=== PATIENT | female | born 1960 | race Two or more races ===

== ENCOUNTER → 2022-07-10 | Day surgery (SDC) | payer MEDICAID ==
[2022-07-05 10:58] LABS: Basophils # (auto) 0 10 ^3/uL (0-0.2); Basophils % (auto) 0.7 % (0.0-2.0); Eosinophils # (auto) 0.1 10 ^3/uL (0-0.8); Eosinophils % (auto) 2.8 % (0.0-7.0); Hematocrit 45.8 % (36.0-46.0); Hemoglobin 14.9 g/dL (12.2-16.2); Lymphocytes # (auto) 2.7 10 ^3/uL (0.4-5.4); Lymphocytes % (auto) 53.8 % (10.0-50.0); Mean Corpuscular Hemoglobin 29.1 pg (28.0-32.0); Mean Corpuscular Hgb Conc. 32.5 g/dL (32.0-36.0); Mean Corpuscular Volume 89.6 fL (80.0-100.0); Monocytes # (auto) 0.3 10 ^3/uL (0-1.3); Monocytes % (auto) 5.1 % (0.0-12.0); Neutrophils # (auto) 1.9 10 ^3/uL (1.6-8.6); Neutrophils % (auto) 37.6 % (37.0-80.0); Nucleated Red Blood Cells % 0.1 %; Red Blood Cells 5.11 10^6/uL (4.0-5.20); Red Cell Distribution Width 13.5 % (11.8-14.3); White Blood Cell 5.1 10^3/uL (4.4-10.8)
[2022-07-05 11:19] LABS: INR 0.96 (0.9-1.15); Partial Thromboplastin Time 25.7 sec (24.6-33.4)
[2022-07-05 11:57] LABS: Potassium 4.4 mmol/L (3.5-5.1)
[2022-07-05 12:09] LABS: Albumin 3.7 g/dL (3.4-5.0); Bilirubin, Total 0.4 mg/dL (0.2-1.0); Calcium 8.9 mg/dL (8.5-10.1); Total Protein 7.3 g/dL (6.4-8.2)
[~2022-07-10] VITALS: Ht 154.9 cm; Wt 70.8 kg
[~2022-07-10] MED LIST: CHOL500040 PO
[2022-07-10] MEDS: diphenhdrAMINE HCL 50 MG/1 ML VL ONE ×2 (14:22→14:23)
[2022-07-10] MEDS: MIDAZOLAM HCL 2MG/2ML 2ml VIAL (1mg/ml) ONE ×3 (14:22→14:28)
[2022-07-10] MEDS: fentaNYL CITRATE 100 MCG/2 ML VL ONE ×2 (14:22→14:25)
[2022-07-10 15:14] VITALS: BP 116/69
== END | disposition home or self-care (01) ==
LOC: GI 12:43
PROVIDERS: ATTEND Internal Medicine Gastroenterology
DX: Z12.11 Encounter for screening for malignant neoplasm of colon (principal); K64.8 Other hemorrhoids; Z90.49 Acquired absence of other specified parts of digestive tract; Z20.822 Contact with and (suspected) exposure to COVID-19
CPT/HCPCS: 36415; 45378; 80053; 85025; 85610; 85730; J1200; J2250; J3010; U0003; 99152

== ENCOUNTER → 2023-05-21 | Outpatient (CLI) | payer MEDICAID ==
[2023-05-21 08:47] LABS: Basophils # (auto) 0.1 10 ^3/uL (0-0.2); Basophils % (auto) 0.8 % (0.0-2.0); Eosinophils # (auto) 0.2 10 ^3/uL (0-0.8); Eosinophils % (auto) 2.4 % (0.0-7.0); Hematocrit 45.2 % (36.0-46.0); Lymphocytes # (auto) 3.2 10 ^3/uL (0.4-5.4); Lymphocytes % (auto) 49.3 % (10.0-50.0); Mean Corpuscular Hemoglobin 29.5 pg (28.0-32.0); Mean Corpuscular Hgb Conc. 33.1 g/dL (32.0-36.0); Mean Corpuscular Volume 89.1 fL (80.0-100.0); Monocytes # (auto) 0.3 10 ^3/uL (0-1.3); Monocytes % (auto) 5.1 % (0.0-12.0); Neutrophils # (auto) 2.8 10 ^3/uL (1.6-8.6); Neutrophils % (auto) 42.4 % (37.0-80.0); Nucleated Red Blood Cells % 0.1 %; Red Blood Cells 5.08 10^6/uL (4.0-5.20); Red Cell Distribution Width 13.7 % (11.8-14.3); White Blood Cell 6.5 10^3/uL (4.4-10.8)
[2023-05-21 09:30] LABS: Alanine Aminotransferase 56 U/L (7-40); Albumin 4.7 g/dL (3.2-4.8); Alkaline Phosphatase 70 U/L (46-116); Anion Gap 7 (5-15); Aspartate Aminotransferase 29 U/L (13-40); BUN/Creatinine Ratio 22.1 (10.0-20.0); Bilirubin, Total 0.5 mg/dL (0.2-1.0); Blood Urea Nitrogen 17 mg/dL (9-23); Calcium 9.7 mg/dL (8.5-10.1); Carbon Dioxide 28 mmol/L (20-30); Chloride 106 mmol/L (98-107); Cholesterol 196 mg/dL (< 200); Glucose 97 mg/dL (74-106); HDL Cholesterol 40 mg/dL (40-59); LDL Cholesterol 144 mg/dL (< 100); Potassium 4.1 mmol/L (3.5-5.1); Sodium 141 mmol/L (136-145); Triglycerides 140 mg/dL (< 150)
[2023-05-21 09:31] LABS: Total Protein 7.4 g/dL (5.7-8.2)
== END | disposition home or self-care (01) ==
LOC: LAB 08:22
PROVIDERS: ATTEND Internal Medicine Gastroenterology
DX: R74.8 Abnormal levels of other serum enzymes (principal)
CPT/HCPCS: 36415; 80053; 80061; 83036; 85025

== ENCOUNTER → 2023-10-10 | Day surgery (SDC) | payer MEDICAID ==
[2023-10-08 10:22] LABS: Basophils # (auto) 0 10 ^3/uL (0-0.2); Basophils % (auto) 0.7 % (0.0-2.0); Eosinophils # (auto) 0.1 10 ^3/uL (0-0.8); Eosinophils % (auto) 2.4 % (0.0-7.0); Hematocrit 45.7 % (36.0-46.0); Hemoglobin 15.2 g/dL (12.2-16.2); Lymphocytes # (auto) 2.9 10 ^3/uL (0.4-5.4); Lymphocytes % (auto) 48.3 % (10.0-50.0); Mean Corpuscular Hemoglobin 28.8 pg (28.0-32.0); Mean Corpuscular Hgb Conc. 33.2 g/dL (32.0-36.0); Mean Corpuscular Volume 86.6 fL (80.0-100.0); Monocytes # (auto) 0.3 10 ^3/uL (0-1.3); Monocytes % (auto) 5.7 % (0.0-12.0); Neutrophils # (auto) 2.5 10 ^3/uL (1.6-8.6); Neutrophils % (auto) 42.9 % (37.0-80.0); Nucleated Red Blood Cells % 0.1 %; Red Blood Cells 5.28 10^6/uL (4.0-5.20); Red Cell Distribution Width 13.7 % (11.8-14.3); White Blood Cell 5.9 10^3/uL (4.4-10.8)
[2023-10-08 10:38] LABS: INR 0.97 (0.9-1.15); Prothrombin Time 10.3 sec (9.3-11.8)
[2023-10-08 11:10] LABS: Alanine Aminotransferase 60 U/L (7-40); Albumin 4.5 g/dL (3.2-4.8); Alkaline Phosphatase 77 U/L (46-116); Anion Gap 6 (5-15); BUN/Creatinine Ratio 22.1 (10.0-20.0); Blood Urea Nitrogen 15 mg/dL (9-23); Calcium 9.3 mg/dL (8.5-10.1); Carbon Dioxide 26 mmol/L (20-30); Chloride 107 mmol/L (98-107); Glucose 111 mg/dL (74-106); LDL Cholesterol 137 mg/dL (< 100); Potassium 3.9 mmol/L (3.5-5.1); Sodium 139 mmol/L (136-145); Triglycerides 159 mg/dL (< 150)
[2023-10-08 11:11] LABS: Aspartate Aminotransferase 49 U/L (13-40); Bilirubin, Total 0.5 mg/dL (0.2-1.0); Cholesterol 193 mg/dL (< 200); HDL Cholesterol 40 mg/dL (40-59); Total Protein 7.4 g/dL (5.7-8.2)
[~2023-10-10] VITALS: Ht 154.9 cm; Wt 72.6 kg
[~2023-10-10] MED LIST changes: +OMEP20TA PO; +SODIUM CHLORIDE LOCK 10 ML ONE
[2023-10-10 10:38] VITALS: O2SAT 98
[2023-10-10] MEDS: LIDOCAINE VISCOUS 2% 15ML UD ONE (10:39)
[2023-10-10] MEDS: diphenhdrAMINE HCL 50 MG/1 ML VL ONE (10:41)
[2023-10-10] MEDS: fentaNYL CITRATE 100 MCG/2 ML VL ONE (10:41)
[2023-10-10] MEDS: MIDAZOLAM HCL 5 MG/ML-1ML VIAL ONE (10:41)
[2023-10-10 10:52] VITALS: TEMP 98.1; O2SAT 98
[2023-10-10 11:30] VITALS: BP 125/74; PULSE 68; RESP 14; O2SAT 98
== END | disposition home or self-care (01) ==
LOC: GI 09:08
PROVIDERS: ATTEND Internal Medicine Gastroenterology
DX: K21.9 Gastro-esophageal reflux disease without esophagitis (principal); R10.13 Epigastric pain; K29.50 Unspecified chronic gastritis without bleeding; B96.81 Helicobacter pylori [H. pylori] as the cause of diseases classified elsewhere; K44.9 Diaphragmatic hernia without obstruction or gangrene; Z79.899 Other long term (current) drug therapy; Z86.16 Personal history of COVID-19; Z98.890 Other specified postprocedural states
CPT/HCPCS: 36415; 43239; 80053; 80061; 83036; 85025; 85610; 85730; 86803; 88305; 88312; 88342; J1200; J2250; J3010

== ENCOUNTER → 2023-10-24 | Outpatient (CLI) | payer MEDICAID ==
[~2023-10-24] MED LIST changes: -SODIUM CHLORIDE LOCK 10 ML ONE
[2023-10-24 09:35] LABS: Basophils # (auto) 0 10 ^3/uL (0-0.2); Basophils % (auto) 0.8 % (0.0-2.0); Eosinophils # (auto) 0.2 10 ^3/uL (0-0.8); Eosinophils % (auto) 2.7 % (0.0-7.0); Hematocrit 45.7 % (36.0-46.0); Hemoglobin 14.9 g/dL (12.2-16.2); Lymphocytes # (auto) 2.6 10 ^3/uL (0.4-5.4); Lymphocytes % (auto) 45.4 % (10.0-50.0); Mean Corpuscular Hemoglobin 28.3 pg (28.0-32.0); Mean Corpuscular Hgb Conc. 32.5 g/dL (32.0-36.0); Mean Corpuscular Volume 87.1 fL (80.0-100.0); Monocytes # (auto) 0.4 10 ^3/uL (0-1.3); Monocytes % (auto) 6.1 % (0.0-12.0); Neutrophils # (auto) 2.6 10 ^3/uL (1.6-8.6); Nucleated Red Blood Cells % 0.1 %; Red Blood Cells 5.25 10^6/uL (4.0-5.20); Red Cell Distribution Width 13.3 % (11.8-14.3); White Blood Cell 5.8 10^3/uL (4.4-10.8)
[2023-10-24 09:45] LABS: Urine Bacteria MOD /hpf (None Seen); Urine Blood 1+ /uL (Negative); Urine Clarity Clear (Clear); Urine Color Yellow (Yellow); Urine Mucus FEW (None Seen); Urine Protein, UAD Negative (Negative); Urine Specific Gravity 1.026 (1.001-1.035); Urine Urobilinogen Normal (Negative); Urine WBC 4 /hpf (0 - 5)
[2023-10-24 10:10] LABS: Alanine Aminotransferase 75 U/L (7-40); Alkaline Phosphatase 72 U/L (46-116); Anion Gap 2 (5-15); BUN/Creatinine Ratio 24.3 (10.0-20.0); Blood Urea Nitrogen 18 mg/dL (9-23); Calcium 9.4 mg/dL (8.5-10.1); Carbon Dioxide 29 mmol/L (20-30); Chloride 110 mmol/L (98-107); Glucose 130 mg/dL (74-106); LDL Cholesterol 122 mg/dL (< 100); Potassium 4.2 mmol/L (3.5-5.1); Sodium 141 mmol/L (136-145); Triglycerides 128 mg/dL (< 150)
[2023-10-24 10:11] LABS: Albumin 4.3 g/dL (3.2-4.8); Aspartate Aminotransferase 48 U/L (13-40); Bilirubin, Total 0.7 mg/dL (0.2-1.0); Cholesterol 180 mg/dL (< 200); HDL Cholesterol 35 mg/dL (40-59); Total Protein 7.2 g/dL (5.7-8.2)
== END | disposition home or self-care (01) ==
LOC: LAB 09:07
PROVIDERS: ATTEND Internal Medicine
DX: Z00.01 Encounter for general adult medical examination with abnormal findings (principal); E78.00 Pure hypercholesterolemia, unspecified; K76.0 Fatty (change of) liver, not elsewhere classified; R73.03 Prediabetes; R03.0 Elevated blood-pressure reading, without diagnosis of hypertension
CPT/HCPCS: 36415; 80053; 80061; 81001; 83036; 84439; 84443; 85025

== ENCOUNTER → 2024-03-22 | Outpatient (CLI) | payer MEDICAID ==
[2024-03-22 09:03] LABS: Basophils # (auto) 0 10 ^3/uL (0-0.2); Basophils % (auto) 0.8 % (0.0-2.0); Eosinophils # (auto) 0.2 10 ^3/uL (0-0.8); Eosinophils % (auto) 3.1 % (0.0-7.0); Hematocrit 45.5 % (36.0-46.0); Hemoglobin 15.4 g/dL (12.2-16.2); Lymphocytes # (auto) 2.8 10 ^3/uL (0.4-5.4); Lymphocytes % (auto) 52.5 % (10.0-50.0); Mean Corpuscular Hgb Conc. 33.9 g/dL (32.0-36.0); Mean Corpuscular Volume 88.3 fL (80.0-100.0); Monocytes # (auto) 0.3 10 ^3/uL (0-1.3); Neutrophils # (auto) 2.1 10 ^3/uL (1.6-8.6); Neutrophils % (auto) 38.6 % (37.0-80.0); Nucleated Red Blood Cells % 0.1 %; Platelet Count (auto) 246 10^3/uL (140-450); Red Blood Cells 5.15 10^6/uL (4.0-5.20); Red Cell Distribution Width 13.8 % (11.8-14.3); White Blood Cell 5.3 10^3/uL (4.4-10.8)
[2024-03-22 09:20] LABS: INR 0.99 (0.9-1.15); Prothrombin Time 10.5 sec (9.3-11.8)
[2024-03-22 09:28] LABS: Alanine Aminotransferase 88 U/L (7-40); Albumin 4.5 g/dL (3.2-4.8); Alkaline Phosphatase 75 U/L (46-116); Anion Gap 7 (5-15); Aspartate Aminotransferase 50 U/L (13-40); Blood Urea Nitrogen 15 mg/dL (9-23); Calcium 9.9 mg/dL (8.7-10.4); Carbon Dioxide 27 mmol/L (20-31); Chloride 110 mmol/L (98-107); Glucose 119 mg/dL (74-106); LDL Cholesterol 111 mg/dL (< 100); Sodium 144 mmol/L (136-145); Triglycerides 144 mg/dL (< 150)
[2024-03-22 09:29] LABS: Bilirubin, Total 0.6 mg/dL (0.2-1.0); Cholesterol 164 mg/dL (< 200); HDL Cholesterol 37 mg/dL (40-59); Total Protein 7.3 g/dL (5.7-8.2)
[2024-03-22 09:47] LABS: Hepatitis B Surface Antigen Negative (Negative)
[2024-03-22 10:08] LABS: Hepatitis C Antibody Negative (Negative)
== END | disposition home or self-care (01) ==
LOC: LAB 08:28
PROVIDERS: ATTEND Internal Medicine
DX: R73.03 Prediabetes (principal); R74.8 Abnormal levels of other serum enzymes; K76.0 Fatty (change of) liver, not elsewhere classified; E78.00 Pure hypercholesterolemia, unspecified; R03.0 Elevated blood-pressure reading, without diagnosis of hypertension; K21.9 Gastro-esophageal reflux disease without esophagitis
CPT/HCPCS: 36415; 80053; 80061; 82728; 83036; 85025; 85610; 86038; 86803; 87340

== ENCOUNTER 2024-06-12 12:02 | Emergency (ER) | payer MEDICAID ==
[~2024-06-12] VITALS: Ht 154.9 cm; Wt 73.3 kg
--- NOTE | 2024-06-12 13:26 | DVH ---
CHEST RADIOGRAPH Indication: FLUE Technique: Frontal and lateral view of the chest was obtained Comparison: None FINDINGS: Lines and Tubes: None Lungs: Clear Pleura: No effusion. No pneumothorax. Cardiomediastinal contours: Unremarkable Bones: Unremarkable IMPRESSION: 1. No evidence of acute disease. HS:Y
[2024-06-12 14:07] VITALS: BP 126/74; PULSE 95; RESP 18; TEMP 98.5; O2SAT 97
[2024-06-12] MEDS ORDERED: LEVO500T91 PO (14:13)
[2024-06-12] MEDS ORDERED: BENZ200C64 PO (14:13)
--- NOTE | 2024-06-12 14:16 | ED.PDOC ---
SOB-HPI HPI Comments A 63 YEAR OLD FEMALE PRESENTS TO THE ED WITH CHIEF COMPLAINT OF COUGH. PATIENT REPORTS THAT SHE HAS BEEN EXPERIENCING A COUGH WITH ASSOCIATED SUBSTERNAL CHEST PAIN AND SORE THROAT FOR THE PAST 4 DAYS. PATIENT RELAYS THAT SHE HAS HISTORY OF PNEUMONIA IN THE PAST. PATIENT DENIES ANY N/V/D, FEVER, CHILLS, DIZZINESS, ABDOMINAL PAIN, OR SOB. NO OTHER SYMPTOMS REPORTED AT THIS TIME OF CARE. Chief Complaint: Flu like Time Seen by MD: 14:00 Reviewed notes: Nurses Notes, Medications, Allergies Information Source: Patient Mode of Arrival: Ambulatory Severity: Mild, Moderate Timing: Days Duration: Since onset Context: At Rest PE Risk Factors: None History of: Recent URI Prehospital treatment: None Modifying Factors: Nothing Associated Signs and Symptoms: Cough, Sore Throat, Chest Pain Quality: Pressure Radiation: No Radiation Location: Substernal If cough with SOB: Productive Past Medical History PAST MEDICAL HISTORY: HTN Surgical History: Denies all surgeries METAL STAMPER History: No Pertinent METAL STAMPER History Family History Family History: Reviewed,noncontributory to illness Social History Smoker: Non-Smoker Alcohol: Denies ETOH Use Drugs: Denies Drug Use Lives In: Home Constitutional: denies: chills, diaphoresis, fatigue, fever, malaise, sweats, weakness, others EENTM: reports: nose congestion, throat pain; denies: blurred vision, double vision, ear bleeding, ear discharge, ear drainage, ear pain, ear ringing, eye pain, eye redness, hearing loss, mouth pain, mouth swelling, nasal discharge, nose bleeding, nose pain, photophobia, tearing, throat swelling, voice changes, others Respiratory: reports: cough; denies: hemoptysis, orthopnea, SOB at rest, short ness of breath, SOB with excertion, stridor, wheezing, others Cardiovascular: denies: chest pain, dizzy spells, diaphoresis, Dyspnea on exertion, edema, irregular heart beat, left arm pain, lightheadedness, palpitations, PND, syncope, others Gastrointestinal: denies: abdomen distended, abdominal pain, blood streaked bowels, constipated, diarrhea, dysphagia, difficulty swallowing, hematemesis, melena, nausea, poor appetite, poor fluid intake, rectal bleeding, rectal pain, vomiting, others Genitourinary: denies: abnormal vagina bleeding, burning, dyspareunia, dysuria, flank pain, frequency, hematuria, incontinence, pain, , vagina discharge, urgency, others Neurological: denies: dizziness, fainting, headache, left sided numbness, left sided weakness, numbness, paresthesia, pre-existing deficit, right sided numbness, right sided weakness, seizure, speech problems, tingling, tremors, weakness, others Musculoskeletal: denies: back pain, gout, joint pain, joint swelling, muscle pain, muscle stiffness, neck pain, others Integumetry: denies: bruises, change in color, change in hair/nails, dryness, laceration, lesions, lumps, rash, wounds, others Allergic/Immunocompromised: denies: Difficulty Healing, Frequent Infections, Hives, Itching, others Hematologic/Lymphatic: denies: anemia, blood clots, easy bleeding, easy bruising, swollen glands, others Endocrine: denies: excessive hunger, excessive sweating, excessive thirst, excessive urination, flushing, intolerance to cold, intolerance to heat, unexplained weight gain, unexplained weight loss, others Psychiatric: denies: anxiety, bipolar disorder, depression, hopeless, panic disorder, schizophrenia, sleepless, suicidal, others All Other Systems: Reviewed and Negative Physical Exam General Appearance: No Apparent Distress, Normal HEENT: Normal ENT Inspection, PERRL/EOMI Neck: Full Range of Motion, Non-Tender, Normal, Normal Inspection Respiratory: Chest Non-Tender, Expiration, No Accessory Muscle Use, No Respiratory Distress, Rhonchi Cardiovascular: No Edema, No JVD, No Murmur, No Gallop, Normal Peripheral Pulses, Regular Rate/Rhythm Breast Exam: Deferred Gastrointestinal: No Organomegaly, Non Tender, No Pulsatile Mass, Normal Bowel Sounds, Soft Genitalia: Deferred Pelvic: Deferred Rectal: Deferred Extremities: No calf tenderness, Normal capillary refill, Normal inspection, Normal range of motion, Non-tender, No pedal edema Musculoskeletal : Apperance: Normal Neurologic: Alert, nuclear medical tech II-XII nml as Tested, No Motor Deficits, Normal Affect, Normal Mood, No Sensory Deficits Cerebellar Function: Normal Reflexes: Normal Skin: Dry, Normal Color, Warm Peripheral Pulses: 2+ carotid (R), 2+ carotid (L) Lymphatic: No Adenopathy Was a procedure done? Was a procedure done?: No Differential Dx Differential Diagnosis: Bronchitis, Pneumonia, Sinusitis, Allergic Rhinitis, Pharyngitis, URI X-Ray, Labs, Meds, VS Vital Signs Date Time Temp Pulse Resp B/P (MAP) Pulse Ox O2 Delivery O2 Flow Rate FiO2 06/12/24 14:07 95 18 97 Room Air 06/12/24 14:07 98.5 95 18 126/74 (91) 97 98.5 06/12/24 12:21 98.3 93 18 128/79 (95) 96 CHEST XR: PATIENT: JENNIFER RAHMANACCT: [id number]: [id number] : 1960 LOC: ER ROOM / BED: / AGE / SEX: 63 / F ADM STATUS: REG ER SERVICE [id number] ORDERING PHYSICIAN: JUVENTINO AMES PROCEDURE(s): CXR2 - CHEST TWO VIEWS ROUTINE REASON: FLUE ORDER NUMBER(s): [id number], ACCESSION NUMBER(s): [id number] CHEST RADIOGRAPH Indication: FLUE Technique: Frontal and lateral view of the chest was obtained Comparison: None FINDINGS: Lines and Tubes: None Lungs: Clear Pleura: No effusion. No pneumothorax. Cardiomediastinal contours: Unremarkable Bones: Unremarkable IMPRESSION: 1. No evidence of acute disease. X-Ray, Labs, Meds, VS Comment EXTERNAL MEDICAL RECORDS REVIEWED: [NONE] INDEPENDENT HISTORIANS: [NONE] SOCIAL DETERMINANTS OF HEALTH: [NONE] LABS ORDERED: NONE REVIEWED AND INTERPRETED RESULTS: NONE IMAGING ORDERED: NONE TREATMENTS ORDERED: NONE PROCEDURES PERFORMED: NONE CRITICAL CARE TIME: NONE GIVEN THE HISTORY AND PRESENT ILLNESS OF THE PATIENT, AFTER REVIEWING LABS, IMAGING, AND COURSE OF TREATMENT ADMINISTERED DURING THEIR ED VISIT, THERE IS LOW SUSPICION FOR RED FLAG FINDINGS. BASED ON HISTORY OF PRESENT ILLNESS, AND PHYSICAL EXAM, PATIENT WILL BE DISCHARGED HOME. DISCUSSED PLAN FOR DISCHARGE HOME WITH [facility] AND OTTO VALDERRAMA. MEDICATION WARNINGS GIVEN. SHARED DECISION MAKING: DISCUSSED WITH PATIENT THAT THEIR WORKUP WAS NORMAL. PATIENT INSTRUCTED TO FOLLOW UP WITH PRIMARY CARE PROVIDER IN 1-2 DAYS FOR RE- EVALUATION OF SYMPTOMS. PATIENT VERBALIZES UNDERSTANDING TO RETURN TO ED FOR NEW OR WORSENING SYMPTOMS OR IF FOLLOW UP WITH PCP CANNOT BE OBTAINED. PATIENT FEELS COMFORTABLE GOING HOME AT THIS TIME. ALL QUESTIONS ADDRESSED AT TIME OF DISCHARGE. Time of 1ST Reevaluation: 14:23 Reevaluation 1ST: Improved Patient Education/Counseling: Diagnosis, Treatment, Need For Follow Up Family Education/Counseling: Diagnosis, Treatment, Need For Follow Up Medical Screening: No EMC Exist At This Time Departure 1 Departure Time of Disposition: :23 Impression: Primary Impression: Acute bronchitis Qualified Codes: J20.9 - Acute bronchitis, unspecified Disposition: HOME / SELF CARE / HOMELESS Condition: Stable Additional Instructions: FOLLOW-UP WITH PCP IN 1 TO 2 DAYS. TAKE MEDICATIONS PRESCRIBED. RETURN TO ED FOR ANY NEW OR WORSENING SYMPTOMS. e-Prescriptions Benzonatate (Benzonatate) 200 Mg Cap 1 CAP PO TID, #30 CAP Prov: JUVENTINO AMES 06/12/24 Levofloxacin Hemihydrate (LEVAQUIN 500 MG) 500 Mg Tab 1 TAB PO DAILY, #7 TAB Prov: JUVENTINO AMES 06/12/24 Discharged With: Self Critical Care Note Critical Care Time?: No Stability Stability form required: No Heart Score Heart Score: Heart Score Response (Comments) Value History N/A 0 EKG N/A 0 Age N/A 0 Risk Factors N/A 0 Troponin N/A 0 Total 0 I personally scribed for JUVENTINO AMES ([email or web address]) on 06/12/24 at 14:16. Electronically submitted by Stewart Hilliard ([email or web address]). JUVENTINO AMES Jun 12, 2024 14:16
[2024-06-12] MEDS ORDERED: METH4PAK PO (20:40)
[2024-06-12] MEDS ORDERED: CEFD300C2 PO (20:40)
== END 2024-06-12 14:53 | disposition home or self-care (01) ==
LOC: ER 12:02
DX: J20.9 Acute bronchitis, unspecified (principal); I10 Essential (primary) hypertension
CPT/HCPCS: 71046

== ENCOUNTER 2024-06-12 19:14 | Emergency (ER) | payer MEDICAID ==
[~2024-06-12] VITALS: Ht 154.9 cm; Wt 73.3 kg
[~2024-06-12 19:14] MED LIST changes: +BENZ200C64 PO; +LEVO500T91 PO
[2024-06-12 20:08] VITALS: BP 128/88; PULSE 91; RESP 18; TEMP 98; O2SAT 96
[2024-06-12] MEDS ORDERED: FAMOTIDINE 20 MG TAB PO ONE (20:30)
--- NOTE | 2024-06-12 20:38 | ED.PDOC ---
History of Present Illness(SKN HPI Comments This is a 63-year-old female presents to the ED chief complaint possible allergic reaction to an antibiotic. Patient recently started on Levaquin for bronchitis she notes took 1 dose and 1 hour later started with itchiness in her hands back and chest with a rash. She reports no difficulty breathing, chest pain, shortness of breath, throat swelling lip swelling nausea or vomiting. Chief Complaint: Allergic Reaction Time Seen by MD: 19:26 History of Present Illness: Nurses Notes, Medications, Allergies Allergies: Coded Allergies: NO KNOWN ALLERGIES (Unverified , 07/05/22) Home Meds Active Scripts Methylprednisolone (Medrol Dosepak) 4 Mg Aleksander, 4 MG PO UD for 6 Days, #21 TAB UAD Prov:RAISA PAYNE ASSISTANT BOYS TRACK COACH 06/12/24 Cefdinir (Cefdinir) 300 Mg Cap, 1 CAP PO BID for 5 Days, #10 CAP Prov:RAISA PAYNEP 06/12/24 Benzonatate (Benzonatate) 200 Mg Cap, 1 CAP PO TID, #30 CAP Prov:JUVENTINO AMES 06/12/24 Levofloxacin Hemihydrate (LEVAQUIN 500 MG) 500 Mg Tab, 1 TAB PO DAILY, #7 TAB Prov:JUVENTINO AMES 06/12/24 Reported Medications Omeprazole (Gnp Omeprazole) 20 Mg Tab, 20 MG PO DAILY, TAB 10/08/23 Cholecalciferol (D3 High Potency) 5,000 Unit Cap, 5000 UNIT PO, CAP 07/05/22 Information Source: Patient Mode of Arrival: Ambulatory Past Medical History PAST MEDICAL HISTORY: HTN Surgical History: Denies all surgeries PRACTICE OR STUDENT TEACHER History: No Pertinent PRACTICE OR STUDENT TEACHER History Family History Family History: Reviewed,noncontributory to illness Social History Smoker: Non-Smoker Alcohol: Denies ETOH Use Drugs: Denies Drug Use Lives In: Home Constitutional: denies: chills, diaphoresis, fatigue, fever, malaise, sweats, weakness, others EENTM: denies: blurred vision, double vision, ear bleeding, ear discharge, ear drainage, ear pain, ear ringing, eye pain, eye redness, hearing loss, mouth pain, mouth swelling, nasal discharge, nose bleeding, nose congestion, nose pain, photophobia, tearing, throat pain, throat swelling, voice changes, others Respiratory: denies: cough, hemoptysis, orthopnea, SOB at rest, shortness of breath, SOB with excertion, stridor, wheezing, others Cardiovascular: denies: chest pain, dizzy spells, diaphoresis, Dyspnea on exertion, edema, irregular heart beat, left arm pain, lightheadedness, palpitations, PND, syncope, others Gastrointestinal: denies: abdomen distended, abdominal pain, blood streaked bowels, constipated, diarrhea, dysphagia, difficulty swallowing, hematemesis, melena, nausea, poor appetite, poor fluid intake, rectal bleeding, rectal pain, vomiting, others Genitourinary: denies: abnormal vagina bleeding, burning, dyspareunia, dysuria, flank pain, frequency, hematuria, incontinence, pain, , vagina discharge, urgency, others Neurological: denies: dizziness, fainting, headache, left sided numbness, left sided weakness, numbness, paresthesia, pre-existing deficit, right sided numbness, right sided weakness, seizure, speech problems, tingling, tremors, weakness, others Musculoskeletal: denies: back pain, gout, joint pain, joint swelling, muscle pain, muscle stiffness, neck pain, others Integumetry: reports: rash (Bilateral hands arms and trunk with itchiness); denies: bruises, change in color, change in hair/nails, dryness, laceration, lesions, lumps, wounds, others Allergic/Immunocompromised: denies: Difficulty Healing, Frequent Infections, Hives, Itching, others Hematologic/Lymphatic: denies: anemia, blood clots, easy bleeding, easy bruisin g, swollen glands, others Endocrine: denies: excessive hunger, excessive sweating, excessive thirst, excessive urination, flushing, intolerance to cold, intolerance to heat, unexplained weight gain, unexplained weight loss, others Psychiatric: denies: anxiety, bipolar disorder, depression, hopeless, panic disorder, schizophrenia, sleepless, suicidal, others Physical Exam General Appearance: No Apparent Distress, Normal HEENT: Normal ENT Inspection, Pharynx Normal Neck: Full Range of Motion, Normal Respiratory: Chest Non-Tender, Lungs Clear, No Respiratory Distress, Normal Breath Sounds Cardiovascular: No Edema, No JVD, No Murmur, No Gallop, Normal Peripheral Pulses, Regular Rate/Rhythm Breast Exam: Deferred Gastrointestinal: No Organomegaly, Non Tender, No Pulsatile Mass, Normal Bowel Sounds, Soft Genitalia: Deferred Pelvic: Deferred Rectal: Deferred Extremities: Normal capillary refill, Normal inspection, Normal range of motion, Non-tender, No pedal edema Musculoskeletal : Apperance: Normal Neurologic: Alert, stroboscope operator II-XII nml as Tested, No Motor Deficits, Normal Affect, Normal Mood, No Sensory Deficits Cerebellar Function: Normal Reflexes: Normal Skin: Dry, Normal Color, Rash (Urticarial rash noted on bilateral hands bilateral arms and trunk. No noted excoriations open lesions or drainage.), Warm Lymphatic: No Adenopathy Was a procedure done? Was a procedure done?: No Differential Diagnosis (INTG) Differential Diagnosis: Cellulitis X-Ray, Labs, Meds, VS Vital Signs Date Time Temp Pulse Resp B/P (MAP) Pulse Ox O2 Delivery O2 Flow Rate FiO2 06/12/24 20:08 98.0 91 18 128/88 (101) 96 06/12/24 20:08 98.0 91 18 128/88 (101) 96 98.0 Current Medications Medications (Trade) Dose Ordered Sig/Nimisha Route Start Time Stop Time Status Last Admin Dexamethasone Sodium Phosphate (Decadron Injection) 10 mg ONCE ONCE IM 06/12/24 20:30 06/12/24 20:32 DC 06/12/24 20:55 Diphenhydramine HCl (Benadryl Injection) 25 mg ONCE ONCE IM 06/12/24 20:45 06/12/24 20:46 DC 06/12/24 20:54 Famotidine (Pepcid Tablet) 20 mg ONCE ONCE PO 06/12/24 21:00 06/12/24 21:01 DC 06/12/24 20:55 X-Ray, Labs, Meds, VS Comment Patient given Decadron 10 mg IM, Benadryl 25 mg IM, and Pepcid 20 mg p.o.. Reports improvement in symptoms notes no itchiness denies chest pain difficulty breathing or shortness of breath or throat swelling is requesting discharge at this time. Likely secondary to allergic reaction to the Levaquin. Advised patient to stop medication and we will script cefdinir twice daily x5 days. Advised to rest, increase p.o. fluids with electrolytes, follow back up with your PCP in 2-3 days as necessary. ER return precautions given patient indicates understanding and agrees with discharge plan of care. Time of 1ST Reevaluation: 20:40 Reevaluation 1ST: Improved Patient Education/Counseling: Diagnosis, Treatment, Prognosis, Need For Follow Up Family Education/Counseling: Diagnosis, Treatment, Prognosis, Need For Follow Up Departure 1 Departure Time of Disposition: 20:40 Impression: Primary Impression: Allergic reaction Qualified Codes: T78.40XA - Allergy, unspecified, initial encounter Disposition: HOME / SELF CARE / HOMELESS Condition: Stable e-Prescriptions Methylprednisolone (Medrol Dosepak) 4 Mg Aleksander 4 MG PO UD for 6 Days, #21 TAB UAD Prov: RAISA PAYNE 06/12/24 Cefdinir (Cefdinir) 300 Mg Cap 1 CAP PO BID for 5 Days, #10 CAP Prov: RAISA PAYNE 06/12/24 Discharged With: Spouse Critical Care Note Critical Care Time?: No Stability Stability form required: No RAISA PAYNE Jun 12, 2024 20:38
[2024-06-12] MEDS ORDERED: METH4PAK PO (20:40)
[2024-06-12] MEDS ORDERED: CEFD300C2 PO (20:40)
[2024-06-12] MEDS: diphenhdrAMINE HCL 50 MG/1 ML VL IM ONE (20:54)
[2024-06-12] MEDS: FAMOTIDINE 20 MG TAB PO ONE (20:55)
[2024-06-12] MEDS: DexAMETHasone SOD PHOS 10MG/1ML VIAL INJ IM ONE (20:55)
== END 2024-06-12 21:55 | disposition home or self-care (01) ==
LOC: ER 19:14
DX: T78.49XA Other allergy, initial encounter (principal); I10 Essential (primary) hypertension; Z79.899 Other long term (current) drug therapy; X58.XXXA Exposure to other specified factors, initial encounter; Y93.89 Activity, other specified; Y92.89 Other specified places as the place of occurrence of the external cause; Y99.8 Other external cause status
CPT/HCPCS: 96372; 99284; J1100; J1200

== ENCOUNTER → 2024-07-19 | Outpatient (CLI) | payer MEDICAID ==
[2024-07-19 09:35] LABS: Basophils # (auto) 0 10 ^3/uL (0-0.2); Basophils % (auto) 0.5 % (0.0-2.0); Eosinophils # (auto) 0.1 10 ^3/uL (0-0.8); Eosinophils % (auto) 1.9 % (0.0-7.0); Hematocrit 45.9 % (36.0-46.0); Hemoglobin 15.3 g/dL (12.2-16.2); Lymphocytes # (auto) 2.6 10 ^3/uL (0.4-5.4); Lymphocytes % (auto) 49.5 % (10.0-50.0); Mean Corpuscular Hemoglobin 29.3 pg (28.0-32.0); Mean Corpuscular Hgb Conc. 33.3 g/dL (32.0-36.0); Mean Corpuscular Volume 88.1 fL (80.0-100.0); Monocytes # (auto) 0.3 10 ^3/uL (0-1.3); Monocytes % (auto) 5.1 % (0.0-12.0); Neutrophils # (auto) 2.2 10 ^3/uL (1.6-8.6); Nucleated Red Blood Cells % 0.1 %; Platelet Count (auto) 249 10^3/uL (140-450); Red Blood Cells 5.22 10^6/uL (4.0-5.20); Red Cell Distribution Width 13.4 % (11.8-14.3); White Blood Cell 5.2 10^3/uL (4.4-10.8)
[2024-07-19 09:53] LABS: Chloride 107 mmol/L (98-107); Potassium 4.1 mmol/L (3.5-5.1); Sodium 141 mmol/L (136-145)
[2024-07-19 09:54] LABS: Anion Gap 7 (5-15); Calcium 9.4 mg/dL (8.7-10.4); Carbon Dioxide 27 mmol/L (20-31)
[2024-07-19 09:59] LABS: BUN/Creatinine Ratio 29.3 (10.0-20.0); Blood Urea Nitrogen 22 mg/dL (9-23)
[2024-07-19 10:01] LABS: Glucose 113 mg/dL (74-106)
[2024-07-19 10:06] LABS: INR 0.96 (0.9-1.15); Partial Thromboplastin Time 26.1 SEC (24.5-34.5); Prothrombin Time 10.2 sec (9.3-11.8)
== END | disposition home or self-care (01) ==
LOC: LAB 08:51
PROVIDERS: ATTEND Internal Medicine
DX: Z01.812 Encounter for preprocedural laboratory examination (principal)
CPT/HCPCS: 36415; 80048; 85025; 85610; 85730

== ENCOUNTER 2024-08-09 07:09 | Day surgery (SDC) | payer MEDICAID ==
[2024-08-06 14:28] LABS: Basophils # (auto) 0.1 10 ^3/uL (0-0.2); Basophils % (auto) 0.8 % (0.0-2.0); Eosinophils # (auto) 0.1 10 ^3/uL (0-0.8); Eosinophils % (auto) 2.1 % (0.0-7.0); Hematocrit 44.8 % (36.0-46.0); Hemoglobin 14.9 g/dL (12.2-16.2); Lymphocytes # (auto) 3.6 10 ^3/uL (0.4-5.4); Lymphocytes % (auto) 51.7 % (10.0-50.0); Mean Corpuscular Hemoglobin 29.2 pg (28.0-32.0); Mean Corpuscular Hgb Conc. 33.3 g/dL (32.0-36.0); Mean Corpuscular Volume 87.8 fL (80.0-100.0); Monocytes # (auto) 0.4 10 ^3/uL (0-1.3); Monocytes % (auto) 6.2 % (0.0-12.0); Neutrophils # (auto) 2.7 10 ^3/uL (1.6-8.6); Neutrophils % (auto) 39.2 % (37.0-80.0); Nucleated Red Blood Cells % 0.2 %; Platelet Count (auto) 244 10^3/uL (140-450); Red Cell Distribution Width 13.7 % (11.8-14.3); White Blood Cell 6.9 10^3/uL (4.4-10.8)
[2024-08-06 14:43] LABS: INR 0.98 (0.9-1.15); Partial Thromboplastin Time 26.2 SEC (24.5-34.5); Prothrombin Time 10.4 sec (9.3-11.8)
[2024-08-06 15:02] LABS: Alkaline Phosphatase 67 U/L (46-116); Anion Gap 8 (5-15); BUN/Creatinine Ratio 22.5 (10.0-20.0); Blood Urea Nitrogen 18 mg/dL (9-23); Calcium 9.6 mg/dL (8.7-10.4); Carbon Dioxide 27 mmol/L (20-31); Potassium 3.9 mmol/L (3.5-5.1); Sodium 142 mmol/L (136-145); Total Protein 7.2 g/dL (5.7-8.2)
[2024-08-06 15:03] LABS: Albumin 4.5 g/dL (3.2-4.8); Bilirubin, Total 0.4 mg/dL (0.2-1.0)
[2024-08-06 15:06] LABS: Alanine Aminotransferase 73 U/L (7-40); Aspartate Aminotransferase 47 U/L (13-40); Chloride 107 mmol/L (98-107); Glucose 123 mg/dL (74-106)
[2024-08-06 15:17] LABS: Urine Bacteria FEW /hpf (None Seen); Urine Blood Negative /uL (Negative); Urine Clarity Clear (Clear); Urine Color Yellow (Yellow); Urine Protein, UAD Negative (Negative); Urine Specific Gravity 1.025 (1.001-1.035); Urine Squamous Epithelial Cell FEW /hpf (<5); Urine Urobilinogen 2 mg/dL (Negative); Urine WBC 24 /HPF (0-5)
[~2024-08-09] VITALS: Ht 154.9 cm; Wt 72.1 kg
[2024-08-09] MEDS ORDERED: ceFAZolin 2 GM/D5W100ml 100 ML IV ONE (07:31)
[2024-08-09] MEDS ORDERED: GLYCOPYRROLATE 0.2 MG/ML 1ML VIAL ONE (08:01)
[2024-08-09] MEDS ORDERED: ONDANSETRON HCL 4 MG/2 ML VIAL ONE (08:01)
[2024-08-09] MEDS ORDERED: PROPOFOL 10 MG/ML 20 ML IV ONE (08:01)
[2024-08-09] MEDS ORDERED: MIDAZOLAM HCL 2MG/2ML 2ml VIAL (1mg/ml) ONE (08:01)
[2024-08-09] MEDS ORDERED: KETOROLAC TROMETH 30 MG/ML 1ML VIAL ONE (08:01)
[2024-08-09] MEDS ORDERED: KETAMINE 50mg/ML 1ml syringe ONE (08:01)
[2024-08-09] MEDS: LIDOCAINE 1%HCL (LOCAL ANESTH) 10 ML MDV IJ ONE (09:17)
[2024-08-09 09:22] VITALS: TEMP 97.4; O2SAT 96
[2024-08-09] MEDS ORDERED: ONDANSETRON HCL 4 MG/2 ML VIAL IV ONE (09:30)
[2024-08-09] MEDS ORDERED: HYDROmorphone HCL 2 MG/ML VL/or syr IV PRN (09:30)
[2024-08-09 10:22] VITALS: BP 117/66; PULSE 72; RESP 13; O2SAT 97
--- NOTE | 2024-08-10 15:09 | DVHOP2 ---
Operative Report - 2 Report Details Date: 08/09/24 Preop Diagnosis: Left elbow mass Postop Diagnosis: Left elbow mass Surgeon: Mikhail Murry MD Weathercaster: Franco SCHULZ Anesthesiologist: Feliciano LEAL Anesthesia: Mac, Local Consent: The patient was informed of the risks and benefits of the procedure. These include but are not limited to complications of anesthesia, postoperative infection, incomplete relief of symptoms, recurrence of symptoms, damage to blood vessels, nerves and tendons, deep venous thrombosis, pulmonary embolism and possible need for repeat surgery in the future. Estimated Blood Loss: 5 cc Indications for Surgery: left elbow mass growing in size over the last year Name of Procedure Performed Left elbow mass excision, debriement of triceps tendon Procedure Details Procedure Details: After administering appropriate antibiotics and anesthesia, the upper extremity was prepped and draped in the usual standard fashion. The arm was exsanguinated with Esmarch, and the tourniquet inflated to 250 mmHg. A 4 cm incision was made over left elbow mass. Dissection was carried down to the mass sheath with care taken to protect neurovasc structures. Mass is about 4x3 cm with pasty white chalky substance inside. Mass sheath was removed. After irrigating out the wound with copious amounts of sterile saline, the skin was closed with 3-0 nylon simple interrupted sutures. The patient was sent to the recovery room in good condition, having tolerated the procedure well. Condition Good Disposition Home MIKHAIL MURRY MD Aug 10, 2024 15:09
== END 2024-08-09 10:35 | disposition home or self-care (01) ==
LOC: SUR 07:09
PROVIDERS: ATTEND Orthopaedic Surgery Adult Reconstructive Orthopaedic Surgery
DX: L72.0 Epidermal cyst (principal); R22.32 Localized swelling, mass and lump, left upper limb; Z88.1 Allergy status to other antibiotic agents
CPT/HCPCS: 11424; 36415; 80053; 81001; 85025; 85610; 85730; 88305; J1885; J2003; J2250; J2405; J2704

== ENCOUNTER → 2024-09-28 | Outpatient (CLI) | payer MEDICAID ==
[2024-09-28 09:18] LABS: Basophils # (auto) 0 10 ^3/uL (0-0.2); Basophils % (auto) 0.8 % (0.0-2.0); Eosinophils # (auto) 0.2 10 ^3/uL (0-0.8); Hematocrit 45.1 % (36.0-46.0); Hemoglobin 15.3 g/dL (12.2-16.2); Lymphocytes # (auto) 2.4 10 ^3/uL (0.4-5.4); Lymphocytes % (auto) 47.4 % (10.0-50.0); Mean Corpuscular Hgb Conc. 33.9 g/dL (32.0-36.0); Mean Corpuscular Volume 88.6 fL (80.0-100.0); Monocytes # (auto) 0.3 10 ^3/uL (0-1.3); Monocytes % (auto) 5.2 % (0.0-12.0); Neutrophils # (auto) 2.2 10 ^3/uL (1.6-8.6); Neutrophils % (auto) 43.6 % (37.0-80.0); Platelet Count (auto) 244 10^3/uL (140-450); Red Blood Cells 5.09 10^6/uL (4.0-5.20); Red Cell Distribution Width 13.5 % (11.8-14.3)
[2024-09-28 09:20] LABS: Urine Bacteria FEW /hpf (None Seen); Urine Blood 1+ /uL (Negative); Urine Clarity Turbid (Clear); Urine Color Yellow (Yellow); Urine Mucus FEW (None Seen); Urine Protein, UAD Negative (Negative); Urine Squamous Epithelial Cell FEW /hpf (<5); Urine Urobilinogen Normal (Negative); Urine WBC 13 /HPF (0-5); Urine pH 5.5 (5.0-9.0)
[2024-09-28 09:35] LABS: INR 0.98 (0.9-1.15); Prothrombin Time 10.4 sec (9.3-11.8)
[2024-09-28 10:02] LABS: Albumin 4.6 g/dL (3.2-4.8); Alkaline Phosphatase 70 U/L (46-116); Anion Gap 8 (5-15); BUN/Creatinine Ratio 26.8 (10.0-20.0); Bilirubin, Total 0.6 mg/dL (0.2-1.0); Blood Urea Nitrogen 19 mg/dL (9-23); Calcium 9.8 mg/dL (8.7-10.4); Carbon Dioxide 28 mmol/L (20-31); Sodium 143 mmol/L (136-145); Total Protein 7.3 g/dL (5.7-8.2)
[2024-09-28 10:03] LABS: Alanine Aminotransferase 83 U/L (7-40); Aspartate Aminotransferase 49 U/L (13-40); Chloride 107 mmol/L (98-107); Glucose 122 mg/dL (74-106)
== END | disposition home or self-care (01) ==
LOC: LAB 08:31
PROVIDERS: ATTEND Internal Medicine Gastroenterology
DX: K76.0 Fatty (change of) liver, not elsewhere classified (principal); R94.5 Abnormal results of liver function studies
CPT/HCPCS: 36415; 80053; 81001; 83013; 85025; 85610

== ENCOUNTER → 2025-01-06 | Outpatient (CLI) | payer MEDICAID ==
[2025-01-06 09:31] LABS: Hematocrit 46.1 % (36.0-46.0); Hemoglobin 15.7 g/dL (12.2-16.2); Mean Corpuscular Hemoglobin 30.1 pg (28.0-32.0); Mean Corpuscular Volume 88.2 fL (80.0-100.0)
[2025-01-06 10:02] LABS: INR 0.97 (0.9-1.15); Prothrombin Time 10.3 sec (9.3-11.8)
[2025-01-06 10:57] LABS: Albumin 4.5 g/dL (3.2-4.8); Alkaline Phosphatase 67 U/L (46-116); Anion Gap 9 (5-15); BUN/Creatinine Ratio 21.3 (10.0-20.0); Blood Urea Nitrogen 17 mg/dL (9-23); Calcium 9.8 mg/dL (8.7-10.4); Carbon Dioxide 26 mmol/L (20-31); Chloride 107 mmol/L (98-107); Potassium 4.2 mmol/L (3.5-5.1); Sodium 142 mmol/L (136-145); Total Protein 7.0 g/dL (5.7-8.2)
[2025-01-06 10:58] LABS: Bilirubin, Total 0.5 mg/dL (0.2-1.0); Cholesterol 173 mg/dL (< 200)
[2025-01-06 11:02] LABS: Alanine Aminotransferase 72 U/L (7-40); Glucose 115 mg/dL (74-106); HDL Cholesterol 35 mg/dL (40-59); Triglycerides 157 mg/dL (< 150)
[2025-01-06 11:16] LABS: Total Cells Counted 100.0 (100)
== END | disposition home or self-care (01) ==
LOC: LAB 08:32
PROVIDERS: ATTEND Internal Medicine Gastroenterology
DX: K76.0 Fatty (change of) liver, not elsewhere classified (principal)
CPT/HCPCS: 36415; 80053; 80061; 83036; 85007; 85027; 85610

== ENCOUNTER 2025-05-17 09:58 | Inpatient (IN) | payer MEDICAID ==
[~2025-05-17] VITALS: Ht 154.9 cm; Wt 76.5 kg
[2025-05-17 11:09] LABS: Hematocrit 44.6 % (36.0-46.0); Hemoglobin 14.9 g/dL (12.2-16.2); Mean Corpuscular Hemoglobin 29.8 pg (28.0-32.0); Mean Corpuscular Volume 89.0 fL (80.0-100.0); Nucleated Red Blood Cells % 0.0 %
[2025-05-17] MEDS: SODIUM CHLORIDE 0.9% 1,000 ML IV ONE (11:12)
--- NOTE | 2025-05-17 11:19 | ED.PDOC ---
GI ASSESSMENT HPI Comments 64y F who presents to the ED for chief complaint of abdominal pain. Pt states she has been having LLQ pain for the past 3 days. Pt was at PCP office today for same complaint and was referred to rule out acute diverticulitis. Pt otherwise has stable vitals in the ED. Pt denies any other symptoms at this time. 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 Family History Family History: Reviewed,noncontributory to illness Social History Smoker: Non-Smoker Alcohol: Denies ETOH Use Drugs: Denies Drug Use Lives In: Home Constitutional: denies: chills, diaphoresis, fatigue, fever, malaise, sweats, w eakness, others EENTM: denies: blurred vision, double vision, ear bleeding, ear discharge, ear drainage, ear pain, ear ringing, eye pain, eye redness, hearing loss, mouth pain, mouth swelling, nasal discharge, nose bleeding, nose congestion, nose pain, photophobia, tearing, throat pain, throat swelling, voice changes, others Respiratory: denies: cough, hemoptysis, orthopnea, SOB at rest, shortness of breath, SOB with excertion, stridor, wheezing, others Cardiovascular: denies: chest pain, dizzy spells, diaphoresis, Dyspnea on exertion, edema, irregular heart beat, left arm pain, lightheadedness, palpitations, PND, syncope, others Gastrointestinal: reports: abdominal pain; denies: abdomen distended, blood streaked bowels, constipated, diarrhea, dysphagia, difficulty swallowing, hematemesis, melena, nausea, poor appetite, poor fluid intake, rectal bleeding, rectal pain, vomiting, others Genitourinary: denies: abnormal vagina bleeding, burning, dyspareunia, dysuria, flank pain, frequency, hematuria, incontinence, pain, , vagina discharge, urgency, others Neurological: denies: dizziness, fainting, headache, left sided numbness, left sided weakness, numbness, paresthesia, pre-existing deficit, right sided numbness, right sided weakness, seizure, speech problems, tingling, tremors, weakness, others Musculoskeletal: denies: back pain, gout, joint pain, joint swelling, muscle pain, muscle stiffness, neck pain, others Integumetry: denies: bruises, change in color, change in hair/nails, dryness, laceration, lesions, lumps, rash, wounds, others Allergic/Immunocompromised: denies: Difficulty Healing, Frequent Infections, Hives, Itching, others Hematologic/Lymphatic: denies: anemia, blood clots, easy bleeding, easy bruising, swollen glands, others Endocrine: denies: excessive hunger, excessive sweating, excessive thirst, excessive urination, flushing, intolerance to cold, intolerance to heat, unexplained weight gain, unexplained weight loss, others Psychiatric: denies: anxiety, bipolar disorder, depression, hopeless, panic disorder, schizophrenia, sleepless, suicidal, others All Other Systems: Reviewed and Negative Physical Exam General Appearance: No Apparent Distress, Normal HEENT: Normal ENT Inspection, Pharynx Normal, TMs Normal Neck: Full Range of Motion, Non-Tender, Normal, Normal Inspection Respiratory: Chest Non-Tender, Lungs Clear, No Accessory Muscle Use, No Res piratory Distress, Normal Breath Sounds Cardiovascular: No Edema, No JVD, No Murmur, No Gallop, Normal Peripheral Pulses, Regular Rate/Rhythm Breast Exam: Deferred Gastrointestinal: No Organomegaly, No Pulsatile Mass, Normal Bowel Sounds, Soft, Other (Positive focal tenderness to palpation to the left lower quadrant) Genitalia: Deferred Pelvic: Deferred Rectal: Deferred Extremities: No calf tenderness, Normal capillary refill, Normal inspection, Normal range of motion, Non-tender, No pedal edema Musculoskeletal : Apperance: Normal Neurologic: Alert, shipping packer II-XII nml as Tested, No Motor Deficits, Normal Affect, Normal Mood, No Sensory Deficits Cerebellar Function: Normal Reflexes: Normal Skin: Dry, Normal Color, Warm Lymphatic: No Adenopathy Was a procedure done? Was a procedure done?: No GI differential Dx Differential Diagnosis: Cholangitis, Cholecystitis, Constipation, Diverticular disease, Esophagitis, Gastritis/PUD, Gastroenteritis, Pancreatitis, Dehydration, Food Poisoning, Bacterial, Viral, Stress Ulcer, Kidney Stone X-Ray, Labs, Meds, VS Vital Signs Date Time Temp Pulse Resp B/P (MAP) Pulse Ox O2 Delivery O2 Flow Rate FiO2 05/17/25 13:48 97.8 58 15 122/69 (86) 99 97.8 05/17/25 13:47 58 15 122/69 05/17/25 12:30 97.8 66 18 145/78 (100) 98 97.8 05/17/25 12:28 66 18 145/78 05/17/25 10:57 65 19 99 Room Air 05/17/25 10:38 97.8 81 18 130/77 (94) 98 97.8 05/17/25 10:00 97.8 70 18 133/79 98 97.8 Lab Test 05/17/25 10:50 05/17/25 10:41 Range/Units Urine Color Light-yellow Yellow Urine Clarity Clear Clear Urine pH 5.5 5.0-9.0 Urine Specific [place] 1.023 1.001-1.035 Urine Protein Negative Negative Urine Ketones Negative Negative Urine Blood Negative Negative /uL Urine Nitrite Negative Negative Urine Bilirubin Negative Negative Urine Urobilinogen Normal Negative mg/dL Urine Leukocyte Esterase Negative Negative /uL Urine RBC 1 0 - 4 /hpf Urine Microscopic WBC 1 0-5 /HPF Urine Squamous Epithelial Cells Few <5 /hpf Urine Bacteria Few H None Seen /hpf Urine Mucus Few None Seen Urine Glucose Normal Normal mg/dL White Blood Count 5.7 4.4-10.8 10^3/uL Red Blood Count 5.01 4.0-5.20 10^6/uL Hemoglobin 14.9 12.2-16.2 g/dL Hematocrit 44.6 36.0-46.0 % Mean Corpuscular Volume 89.0 80.0-100.0 fL Mean Corpuscular Hemoglobin 29.8 28.0-32.0 pg Mean Corpuscular Hemoglobin Concent 33.4 32.0-36.0 g/dL Red Cell Distribution Width 13.2 11.8-14.3 % Platelet Count 236 140-450 10^3/uL Mean Platelet Volume 9.2 6.9-10.8 fL Neutrophils (%) (Auto) 41.7 37.0-80.0 % Lymphocytes (%) (Auto) 50.8 H 10.0-50.0 % Monocytes (%) (Auto) 5.1 0.0-12.0 % Eosinophils (%) (Auto) 1.8 0.0-7.0 % Basophils (%) (Auto) 0.6 0.0-2.0 % Neutrophils # (Auto) 2.4 1.6-8.6 10 ^3/uL Lymphocytes # (Auto) 2.9 0.4-5.4 10 ^3/uL Monocytes # (Auto) 0.3 0-1.3 10 ^3/uL Eosinophils # (Auto) 0.1 0-0.8 10 ^3/uL Basophils # (Auto) 0 0-0.2 10 ^3/uL Nucleated Red Blood Cells 0.0 % Sodium Level 142 136-145 mmol/L Potassium Level 4.5 3.5-5.1 mmol/L Chloride Level 107 98-107 mmol/L Carbon Dioxide Level 26 20-31 mmol/L Anion Gap 9 5-15 Blood Urea Nitrogen 16 9-23 mg/dL Creatinine 0.76 0.550-1.02 mg/dL Glomerular Filtration Rate Calc 87 >90 mL/min BUN/Creatinine Ratio 21.1 H 10.0-20.0 Serum Glucose 102 74-106 mg/dL Lactic Acid Level 1.7 0.4-2.0 mmol/L Calcium Level 9.6 8.7-10.4 mg/dL Lipase 39 12-53 U/L Current Medications Medications (Trade) Dose Ordered Sig/Nimisha Route Start Time Stop Time Status Last Admin Sodium Chloride 1,000 ml @ 1,000 mls/hr Q1H ONCE IV 05/17/25 10:45 05/17/25 11:44 DC 05/17/25 11:12 Morphine Sulfate 4 mg ONCE ONCE IV 05/17/25 10:45 05/17/25 10:46 DC 05/17/25 12:28 Ondansetron HCl (Zofran) 4 mg ONCE ONCE IV 05/17/25 10:45 05/17/25 10:46 DC 05/17/25 12:[address] [address] Ph: [phone] DIAGNOSTIC IMAGING Diagnostic Imaging Report : [id number] Signed PATIENT: JENNIFER RAHMAN ACCT: [id number] UNIT: [id number] : 1960 LOC: ER ROOM / BED: / AGE / SEX: 64 / F ADM STATUS: REG ER SERVICE 1034 ORDERING PHYSICIAN: DENNISE MURRAY MD PROCEDURE(s): ABPL - CT AB PEL WO CON-NO ORAL OR IV REASON: r/o diverticulitis ORDER NUMBER(s): [id number], ACCESSION NUMBER(s): [id number] EXAM: CT CT AB PEL WO CON-NO ORAL OR IV History: r/o diverticulitis Comparison Study: None TECHNIQUE: Multidetector spiral CT of the abdomen and pelvis was performed from lung bases to pubic symphysis. Imaging was performed without intravenous contrast. Coronal and sagittal multiplanar reformats were obtained from the axial data set by the technologist. Radiation Dose : 1. Abdomen/Pelvis: CTDIvol 12.21 mGy, DLP 698.6 mGy*cm. FINDINGS: Evaluation of vasculature and solid organs is limited due to lack of intravenous contrast use. Lung Bases: Lung bases are clear. Visualized portions of the heart and pericardium are unremarkable. Liver: The liver is normal in size. No focal lesions. Gallbladder and Biliary Tree: The gallbladder is contracted. No intrahepatic or extrahepatic biliary ductal dilatation. Spleen: Unremarkable Pancreas: The pancreas is grossly unremarkable. Adrenal Glands: Unremarkable Kidneys: Kidneys are unremarkable without calculi or hydronephrosis. GI tract: The stomach is grossly normal in appearance. No evidence of small bowel wall thickening or abnormal dilatation to suggest bowel obstruction. Mucosal thickening and fat stranding in the sigmoid colon. There are few scattered colonic diverticula. The appendix is not visualized, however no inflammatory changes in the right lower quadrant to suggest acute appendicitis. Peritoneum/mesentery/retroperitoneum. No evidence of free intraperitoneal air. No ascites. Lymph nodes: No lymphadenopathy. There is fat stranding in the central mesentery with swirling. Abdominal Wall: Unremarkable. Vasculature: The visualized abdominal aorta is normal in size and caliber. Evaluation of abdominal and pelvic vessels is limited due to lack of intravenous contrast. Urinary Bladder: Grossly unremarkable for degree of distention. Pelvic Organs: There is a 2.3 cm right adnexal cystic lesion. Uterus is unremarkable. Musculoskeletal: No aggressive focal bony lesions, acute fractures or dislocation. IMPRESSION: 1. Colonic diverticulosis. There is mucosal thickening in the sigmoid colon with Fat stranding but the fat stranding is seen in a location that is without a diverticulum. This may reflect a colitis rather than acute diverticulitis. No fluid collection or pneumoperitoneum. 2. Fat stranding in the central mesentery with swirling. This is not associated with small bowel obstruction or inflammatory change. 3. Right adnexal cystic lesion measuring 2.3 cm. ATED BY: LOTUS HURLEY MD DICTATED DATE/TIME: 05/17/25 112 SIGNED BY: LOTUS HURLEY MD SIGNED DATE/TIME: 05/17/251125 CC: X-Ray, Labs, Meds, VS Comment 64-year-old female here today with a presentation consistent with diverticulitis based off of focal left lower quadrant tenderness to palpation and nonspecific stranding of the sigmoid seen on CT scan. Patient was given pain medication although she states that she had only limited improvement with her pain symptoms. Patient was started on ceftriaxone and Flagyl and will be admitted for further management of her diverticulitis without evidence of abscess or perforation. Images Reviewed?: Images reviewed and evaluated by me Time of 1ST Reevaluation: 11:50 Reevaluation 1ST: Unchanged Time of 2ND Reevaluation: 14:39 Reevaluation 2ND: Improved Patient Education/Counseling: Diagnosis, Treatment Family Education/Counseling: No Family Present SEPSIS Sepsis Screen Date sepsis recognized/suspect: May 17, 2025 Time Sepsis recognized/suspect: 1002 Recent Procedure: No On Antibiotic Therapy: No Respiratory Rate >20: No Heart Rate >90: No Temp<36 C (96.8 F) or >38.3 C: No SBP <90 or MAP <65 mmHG: No New Acute Mental Status Change: No Is the patient on CPAP, BIPAP,: No Physician Orders Ct Ab Pel Wo Con-No Oral Or Iv (05/17/25 10:34) Ceftriaxone Ivpb Rocephin (05/17/25 14:45) Vital Signs Date Time Temp Pulse Resp B/P (MAP) Pulse Ox O2 Delivery O2 Flow Rate FiO2 05/17/25 13:48 97.8 58 15 122/69 (86) 99 97.8 05/17/25 13:47 58 15 122/69 05/17/25 12:30 97.8 66 18 145/78 (100) 98 97.8 05/17/25 12:28 66 18 145/78 05/17/25 10:57 65 19 99 Room Air 05/17/25 10:38 97.8 81 18 130/77 (94) 98 97.8 05/17/25 10:00 97.8 70 18 133/79 98 97.8 Laboratory Tests Test 05/17/25 10:41 Lactic Acid Level 1.7 mmol/L (0.4-2.0) White Blood Count 5.7 10^3/uL (4.4-10.8) Medications Medications Dose Ordered Sig/Nimisha Route Start Time Stop Time Status Last Admin Dose Admin Morphine Sulfate 4 mg ONCE ONCE IV 05/17/25 10:45 05/17/25 10:46 DC 05/17/25 12:28 Ondansetron HCl 4 mg ONCE ONCE IV 05/17/25 10:45 05/17/25 10:46 DC 05/17/25 12:27 Sodium Chloride 1,000 ml @ 1,000 mls/hr Q1H ONCE IV 05/17/25 10:45 05/17/25 11:44 DC 05/17/25 11:12 Departure 1 Departure Time of Disposition: 14:39 Impression: Primary Impression: Acute diverticulitis Disposition: ADMITTED INPATIENT Admit to: Med Surg Condition: Stable Critical Care Note Critical Care Time?: Yes (30 min-critical care time only) Stability Stability form required: No Heart Score Heart Score: Heart Score Response (Comments) Value History N/A 0 EKG N/A 0 Age N/A 0 Risk Factors N/A 0 Troponin N/A 0 Total 0 I personally scribed for DENNISE MURRAY MD ([email or web address]) on 05/17/25 at 11:19. Electronically submitted by Villa Sandoval ([facility] I personally scribed for DENNISE MURRAY MD ([email or web address]) on 05/17/25 at 13:19. Electronically submitted by Villa Sandoval ([facility]). DENNISE MURRAY MD May 17, 2025 11:19
[2025-05-17 11:21] LABS: Potassium 4.5 mmol/L (3.5-5.1); Sodium 142 mmol/L (136-145)
[2025-05-17 11:22] LABS: Anion Gap 9 (5-15); Calcium 9.6 mg/dL (8.7-10.4); Carbon Dioxide 26 mmol/L (20-31)
[2025-05-17 11:26] LABS: Chloride 107 mmol/L (98-107)
[2025-05-17 11:27] LABS: BUN/Creatinine Ratio 21.1 (10.0-20.0); Blood Urea Nitrogen 16 mg/dL (9-23); Glucose 102 mg/dL (74-106)
--- NOTE | 2025-05-17 11:28 | DVH ---
EXAM: CT CT AB PEL WO CON-NO ORAL OR IV History: r/o diverticulitis Comparison Study: None TECHNIQUE: Multidetector spiral CT of the abdomen and pelvis was performed from lung bases to pubic symphysis. Imaging was performed without intravenous contrast. Coronal and sagittal multiplanar reformats were obtained from the axial data set by the technologist. Radiation Dose : 1. Abdomen/Pelvis: CTDIvol 12.21 mGy, DLP 698.6 mGy*cm. FINDINGS: Evaluation of vasculature and solid organs is limited due to lack of intravenous contrast use. Lung Bases: Lung bases are clear. Visualized portions of the heart and pericardium are unremarkable. Liver: The liver is normal in size. No focal lesions. Gallbladder and Biliary Tree: The gallbladder is contracted. No intrahepatic or extrahepatic biliary ductal dilatation. Spleen: Unremarkable Pancreas: The pancreas is grossly unremarkable. Adrenal Glands: Unremarkable Kidneys: Kidneys are unremarkable without calculi or hydronephrosis. GI tract: The stomach is grossly normal in appearance. No evidence of small bowel wall thickening or abnormal dilatation to suggest bowel obstruction. Mucosal thickening and fat stranding in the sigmoid colon. There are few scattered colonic diverticula. The appendix is not visualized, however no infl ammatory changes in the right lower quadrant to suggest acute appendicitis. Peritoneum/mesentery/retroperitoneum. No evidence of free intraperitoneal air. No ascites. Lymph nodes: No lymphadenopathy. There is fat stranding in the central mesentery with swirling. Abdominal Wall: Unremarkable. Vasculature: The visualized abdominal aorta is normal in size and caliber. Evaluation of abdominal and pelvic vessels is limited due to lack of intravenous contrast. Urinary Bladder: Grossly unremarkable for degree of distention. Pelvic Organs: There is a 2.3 cm right adnexal cystic lesion. Uterus is unremarkable. Musculoskeletal: No aggressive focal bony lesions, acute fractures or dislocation. IMPRESSION: 1. Colonic diverticulosis. There is mucosal thickening in the sigmoid colon with Fat stranding but the fat stranding is seen in a location that is without a diverticulum. This may reflect a colitis rather than acute diverticulitis. No fluid collection or pneumoperitoneum. 2. Fat stranding in the central mesentery with swirling. This is not associated with small bowel obstruction or inflammatory change. 3. Right adnexal cystic lesion measuring 2.3 cm.
[2025-05-17] MEDS: ONDANSETRON HCL 4 MG/2 ML VIAL IV ONE (12:27)
[2025-05-17] MEDS: MORPHINE SULFATE 4 MG/ML SYR/VIAL IV ONE (12:28)
[2025-05-17 12:50] LABS: Urine Protein, UAD Negative (Negative)
[2025-05-17] MEDS ORDERED: ACETAMINOPHEN 325 MG TAB PO PRN (15:30)
[2025-05-17] MEDS ORDERED: HYDROcodone-ACET 5/325MG TAB PO PRN (15:30)
[2025-05-17] MEDS: SODIUM CHLORIDE 0.9% 1,000 ML IV SCH (15:30)
[2025-05-17 15:56] LABS: Alanine Aminotransferase 38.0 U/L (7-40); Albumin 4.4 g/dL (3.2-4.8); Alkaline Phosphatase 75.0 U/L (46-116); Bilirubin, Direct 0.1 mg/dL (<0.3); Bilirubin, Total 0.5 mg/dL (0.2-1.0); Total Protein 7.2 g/dL (5.7-8.2)
--- NOTE | 2025-05-17 16:28 | DVHHP2 ---
History of Present Illness History of Present Illness This is a 64-year-old female with a medical history of fatty liver disease followed by Dr. Manley, hypertension, and diet-controlled diabetes (declines pharmacologic therapy). She presents with three days of left noelle-abdominal pain, described as constant without radiation. She denies diarrhea; she had a small bowel movement today but notes reduced stool output overall. No nausea or vomiting reported. She was brought in by her nurse due to persistent abdominal pain. On arrival, she was mildly hypertensive but normalized later; heart rate 64 and afebrile. CBC and CMP are within normal limits, UA negative. CT abdomen/pelvis shows colonic diverticulosis with segmental sigmoid wall thickening and fat stranding located away from a diverticulum, raising concern for colitis rather than classic diverticulitis. Additional findings include fat stranding in the central mesentery not related to small bowel pathology and a 2.3 cm adnexal cyst. She was started on IV metronidazole; she is allergic to levofloxacin. She is on IV fluids, clear liquid diet, and stool studies were ordered. PMHx: Fatty liver disease, hypertension, diabetes (declines treatment). PSH: Denies surgeries. Social history: Lives at home, denies smoking, alcohol, or drugs. ROS: Negative except as noted in HPI. Allergies: Levofloxacin. Review of Systems Allergies: Coded Allergies: Levofloxacin (Verified Allergy, Unknown, 08/09/24) Medications Current Medications Medications Dose Ordered Sig/Nimisha Route Start Time Stop Time Status Last Admin Dose Admin Sodium Chloride 1,000 ml @ 60 mls/hr [id number] IV 05/17/25 15:30 UNV Acetaminophen 650 mg Q6HP PRN PO 05/17/25 15:30 UNV Acetaminophen/ Hydrocodone Bitart 1 tab Q4HP PRN PO 05/17/25 15:30 UNV Enoxaparin Sodium 40 mg DAILY SC 05/18/25 10:00 UNV Ceftriaxone Sodium 50 ml @ 100 mls/hr DAILY@09 IV 05/18/25 09:00 UNV Metronidazole 100 ml @ 100 mls/hr Q8HR IV 05/17/25 22:00 UNV Exam Vital Signs Vital Signs Date Time Temp Pulse Resp B/P (MAP) Pulse Ox O2 Delivery O2 Flow Rate FiO2 05/17/25 15:01 97.0 64 18 132/75 (94) 94 97.0 05/17/25 10:57 Room Air Exam General alert, in mild distress due to abdominal pain. Heart RRR, lungs clear without wheezing or crackles. Abdomen soft with tenderness in the left hemiabdomen, no rebound or guarding, nondistended. No peripheral edema. Neuro at baseline, oriented, no focal deficits. Labs/Xrays Labs Test 05/17/25 10:50 05/17/25 10:41 Range/Units Urine Color Light-yellow Yellow Urine Clarity Clear Clear Urine pH 5.5 5.0-9.0 Urine Specific [place] 1.023 1.001-1.035 Urine Protein Negative Negative Urine Ketones Negative Negative Urine Blood Negative Negative /uL Urine Nitrite Negative Negative Urine Bilirubin Negative Negative Urine Urobilinogen Normal Negative mg/dL Urine Leukocyte Esterase Negative Negative /uL Urine RBC 1 0 - 4 /hpf Urine Microscopic WBC 1 0-5 /HPF Urine Squamous Epithelial Cells Few <5 /hpf Urine Bacteria Few H None Seen /hpf Urine Mucus Few None Seen Urine Glucose Normal Normal mg/dL White Blood Count 5.7 4.4-10.8 10^3/uL Red Blood Count 5.01 4.0-5.20 10^6/uL Hemoglobin 14.9 12.2-16.2 g/dL Hematocrit 44.6 36.0-46.0 % Mean Corpuscular Volume 89.0 80.0-100.0 fL Mean Corpuscular Hemoglobin 29.8 28.0-32.0 pg Mean Corpuscular Hemoglobin Concent 33.4 32.0-36.0 g/dL Red Cell Distribution Width 13.2 11.8-14.3 % Platelet Count 236 140-450 10^3/uL Mean Platelet Volume 9.2 6.9-10.8 fL Neutrophils (%) (Auto) 41.7 37.0-80.0 % Lymphocytes (%) (Auto) 50.8 H 10.0-50.0 % Monocytes (%) (Auto) 5.1 0.0-12.0 % Eosinophils (%) (Auto) 1.8 0.0-7.0 % Basophils (%) (Auto) 0.6 0.0-2.0 % Neutrophils # (Auto) 2.4 1.6-8.6 10 ^3/uL Lymphocytes # (Auto) 2.9 0.4-5.4 10 ^3/uL Monocytes # (Auto) 0.3 0-1.3 10 ^3/uL Eosinophils # (Auto) 0.1 0-0.8 10 ^3/uL Basophils # (Auto) 0 0-0.2 10 ^3/uL Nucleated Red Blood Cells 0.0 % Sodium Level 142 136-145 mmol/L Potassium Level 4.5 3.5-5.1 mmol/L Chloride Level 107 98-107 mmol/L Carbon Dioxide Level 26 20-31 mmol/L Anion Gap 9 5-15 Blood Urea Nitrogen 16 9-23 mg/dL Creatinine 0.76 0.550-1.02 mg/dL Glomerular Filtration Rate Calc 87 >90 mL/min BUN/Creatinine Ratio 21.1 H 10.0-20.0 Serum Glucose 102 74-106 mg/dL Lactic Acid Level 1.7 0.4-2.0 mmol/L Calcium Level 9.6 8.7-10.4 mg/dL Total Bilirubin 0.5 0.2-1.0 mg/dL Direct Bilirubin 0.1 <0.3 mg/dL Aspartate Amino Transferase (AST) 31 13-40 U/L Alanine Aminotransferase (ALT) 38 7-40 U/L Alkaline Phosphatase 75 46-116 U/L Total Protein 7.2 5.7-8.2 g/dL Albumin 4.4 3.2-4.8 g/dL Lipase 39 12-53 U/L SEPSIS Sepsis Screen Date sepsis recognized/suspect: May 17, 2025 Time Sepsis recognized/suspect: 1002 Recent Procedure: No On Antibiotic Therapy: No Respiratory Rate >20: No Heart Rate >90: No Temp<36 C (96.8 F) or >38.3 C: No SBP <90 or MAP <65 mmHG: No New Acute Mental Status Change: No Is the patient on CPAP, BIPAP,: No Physician Orders Ct Ab Pel Wo Con-No Oral Or Iv (05/17/25 10:34) Admit (05/17/25 15:23) Code Status (05/17/25 15:23) Vital Signs .PER UNIT PROTOCOL (05/17/25 15:23) Review Orders With Adm. (05/17/25 15:23) Sodium Chloride 0.9% (05/17/25 15:30) Acetaminophen Tablet (Tylenol Tablet) (05/17/25 15:30) Notify Md Of Changes From Base (05/17/25 15:23) Advance Directive (05/17/25 15:23) Blood Culture (05/17/25 15:) Urine Bacterial Culture (05/17/25 15:) Patient Condition (05/17/25 15:23) Allergies (05/17/25 15:23) Hydrocodone-Acet 5/325mg Tab ([place] 5/32 (05/17/25 15:30) Enoxaparin Sodium (Lovenox) (05/18/25 10:00) Oxygen By Nasal Cannula (05/17/25 15:) Stat Ekg For Chest Pain (05/17/25 15:) Notify Md Of Changes From Base (05/17/25 15:) [place] Tender For 24 Hours (05/17/25 15:23) Emergency Dysrhythmia Protocol (05/17/25 15:23) Rhythm Strips Once Every Shift (05/17/25 15:23) Ceftriaxone 1gm/50ml (Rocephin) (05/18/25 09:00) Metronidazole 500mg/100ml (Flagyl 500mg/ (05/17/25 22:00) Stool Occult Blood (05/17/25 15:) Stool Wbc (05/17/25:) Stool Bacterial Culture (05/17/25:) Clear Liq Diet (05/17/25 Dinner) Vital Signs Date Time Temp Pulse Resp B/P (MAP) Pulse Ox O2 Delivery O2 Flow Rate FiO2 05/17/25 15:01 97.0 64 18 132/75 (94) 94 97.0 05/17/25 13:48 97.8 58 15 122/69 (86) 99 97.8 05/17/25 13:47 58 15 122/69 05/17/25 12:30 97.8 66 18 145/78 (100) 98 97.8 05/17/25 12:28 66 18 145/78 05/17/25 10:57 65 19 99 Room Air 05/17/25 10:38 97.8 81 18 130/77 (94) 98 97.8 05/17/25 10:00 97.8 70 18 133/79 98 97.8 Laboratory Tests Test 05/17/25 10:41 Lactic Acid Level 1.7 mmol/L (0.4-2.0) White Blood Count 5.7 10^3/uL (4.4-10.8) Medications Medications Dose Ordered Sig/Nimisha Route Start Time Stop Time Status Last Admin Dose Admin Morphine Sulfate 4 mg ONCE ONCE IV 05/17/25 10:45 05/17/25 10:46 DC 05/17/25 12:28 4 MG Ondansetron HCl 4 mg ONCE ONCE IV 05/17/25 10:45 05/17/25 10:46 DC 05/17/25 12:27 4 MG Sodium Chloride 1,000 ml @ 1,000 mls/hr Q1H ONCE IV 05/17/25 10:45 05/17/25 11:44 DC 05/17/25 11:12 1,000 MLS/HR Assessment/Plan Assessment/Plan # Acute intractable abdominal pain due to possible infectious Colitis Imaging shows sigmoid wall thickening and fat stranding not associated with diverticula, favoring colitis. Continue IV metronidazole + ceftriaxone for full colitis/diverticulitis coverage, obtain stool studies including C. difficile, and maintain clear liquid diet with IV fluids. # Diverticulitis to rule out Although CT suggests colitis, diverticulitis remains part of the differential given diverticulosis and focal pain. Monitor clinical response, follow abdominal exam closely, continue antibiotics, and advance diet as tolerated once pain improves. # Fatty liver disease Stable chronic condition without acute decompensation. Continue outpatient follow-up with Dr. Manley; no inpatient interventions needed. on [facility] # Hypertension Pressure improved after arrival and currently controlled. Resume home regimen once verified and continue to monitor. # Type 2 diabetes mellitus (diet-controlled) Patient declines pharmacologic therapy. Monitor daily glucose while inpatient and reinforce dietary counseling. # Adnexal cyst Incidental 2.3 cm cyst noted on CT. Recommend nonurgent outpatient pelvic ultrasound for characterization. Case discussed with Dr Mora Full code Plan discussed with: Patient, Other (rn) My Orders Orders - YANIQUE SHEETS Procedure Category Date Status Time Admit ADMIT 05/17/25 Transmitted 15:23 Code Status CODE 05/17/25 Transmitted 15:23 Vital Signs [facility] 05/17/25 In Process 15:23 Review Orders With DRE 05/17/25 In Process 15:23 Sodium Chloride 0.9% PHA 05/17/25 Logged 15:30 Acetaminophen Tablet PHA 05/17/25 Transmitted (Tylenol Tablet) 15:30 Notify Md Of Changes [facility] 05/17/25 In Process From Base 15:23 Advance Directive DRE 05/17/25 In Process 15:23 Blood Culture [facility] 05/17/25 Logged 15:23 Urine Bacterial [facility] 05/17/25 Logged Culture 15:23 Patient Condition ORDERS 05/17/25 Transmitted 15:23 Allergies DRE 05/17/25 In Process 15:23 Hydrocodone-Acet PHA 05/17/25 Logged 5/325mg Tab ([place] 15:30 Enoxaparin Sodium PHA 05/18/25 Logged (Lovenox) 10:00 Oxygen By Nasal RT 05/17/25 Transmitted Cannula 15:23 Stat Ekg For Chest [facility] 05/17/25 In Process Pain 15:23 Notify Md Of Changes [facility] 05/17/25 In Process From Base 15:23 [place] Tender For [facility] 05/17/25 In Process 24 Hours 15:23 Emergency Dysrhythmia [facility] 05/17/25 In Process Protocol 15:23 Rhythm Strips Once [facility] 05/17/25 In Process Every Shift 15:23 Ceftriaxone 1gm/50ml PHA 05/18/25 Logged (Rocephin) 09:00 Metronidazole PHA 05/17/25 Logged 500mg/100ml (Flagyl 22:00 Stool Occult Blood LAB 05/17/25 Logged 15:23 Stool Wbc LAB 05/17/25 Logged 15:23 Stool Bacterial [facility] 05/17/25 Logged Culture 15:23 Clear Liq Diet DIET 05/17/25 Transmitted Dinner Date of Service: May 17, 2025 Billing Provider: RAMILA MORA MD Common Visit Codes: [id number] INP/OBS CARE (HIGH) Secondary Visit Codes: [id number] CARE PLAN 30 MINUTES YANIQUE SHEETS May 17, 2025 16:28
[2025-05-17 20:31] VITALS: O2SAT 98
[2025-05-17 21:51] VITALS: PULSE 64; RESP 17; O2SAT 97
[2025-05-17 22:30] VITALS: BP 115/64; PULSE 65; RESP 17; TEMP 98; O2SAT 97
[2025-05-17] MEDS ORDERED: RESM80TA PO (22:43)
[2025-05-18] VITALS (8 sets, daily range): BP systolic 101–147; BP diastolic 52–83; PULSE 62–88; RESP 15–17; TEMP 97.7–98.3; O2SAT 94–98
[2025-05-18 06:08] LABS: Hematocrit 41.5 % (36.0-46.0); Hemoglobin 14.1 g/dL (12.2-16.2); Mean Corpuscular Hemoglobin 29.8 pg (28.0-32.0); Mean Corpuscular Volume 87.9 fL (80.0-100.0); Nucleated Red Blood Cells % 0.2 %
[2025-05-18 06:21] LABS: INR 0.98 (0.9-1.15); Partial Thromboplastin Time 26.8 SEC (24.5-34.5); Prothrombin Time 10.4 sec (9.3-11.8)
[2025-05-18 06:26] LABS: Alanine Aminotransferase 36 U/L (7-40); Albumin 3.7 g/dL (3.2-4.8); Alkaline Phosphatase 66 U/L (46-116); Anion Gap 9 (5-15); BUN/Creatinine Ratio 26.7 (10.0-20.0); Bilirubin, Total 0.5 mg/dL (0.2-1.0); Blood Urea Nitrogen 16 mg/dL (9-23); Carbon Dioxide 24 mmol/L (20-31); Glucose 95 mg/dL (74-106); Potassium 4.4 mmol/L (3.5-5.1); Sodium 141 mmol/L (136-145); Total Protein 6.1 g/dL (5.7-8.2)
[2025-05-18 06:29] LABS: Calcium 8.6 mg/dL (8.7-10.4); Chloride 108 mmol/L (98-107)
[2025-05-18] MEDS: ENOXAPARIN SOD 40 MG/0.4 ML SYRINGE SC SCH (09:18)
--- NOTE | 2025-05-18 16:57 | DVHPNRES ---
Progress Note Date Seen: May 18, 2025 Resident Creating Document: JIM PATINO RESIDENT Medical Necessity Reason Pt with a Central, PICC or Fol: No Subjective Review of Systems Yareli Carter is a 64-year-old female who presents to the ED with chief complaint of non radiating, oppressive, constant, left sided abdominal pain, which started 3 days before her admission. Denies nausea, vomiting, constipation, diarrhea, alteration on her diet, any recent antibiotic use, hematochezia, bleeding, recent travel and sick contacts. Past medical history: Fatty liver disease (RODGERS, followed by Dr Manley), hypertension, diet controlled diabetes (declines treatment). Surgical history: 08/2024 Left elbow benign mass resection. 10/2023 EGD which showed mild hiatal hernia and mild gastritis. 07/2022 Colonoscopy with mild internal hemorrhoids Family history: Non contributory Social history: Lives in [place] with family. Denies current tobacco, alcohol and other drug abuse. Allergies: Levofloxacin Home medication: Resmetirom Patient seen and examined at bedside. Currently persist with left sided abdominal pain. Advanced to full liquid diet. Objective vital signs Vital Sign Date Time Temp Pulse Resp B/P (MAP) Pulse Ox O2 Delivery O2 Flow Rate FiO2 05/18/25 16:53 98.3 62 16 122/71 (88) 96 98.3 05/18/25 08:00 Room Air* 0 21 Total Intake and Output 05/17/25 05/17/25 05/18/25 15:00 23:00 07:00 Intake Total 1000 ml 320 ml Balance 1000 ml 320 ml medications Current Medications Medications Dose Ordered Sig/Nimisha Route Start Time Stop Time Status Last Admin Dose Admin Sodium Chloride 1,000 ml @ 60 mls/hr [id number] IV 05/17/25 15:30 05/18/25 09:11 60 MLS/HR Acetaminophen 650 mg Q6HP PRN PO 05/17/25 15:30 Acetaminophen/ Hydrocodone Bitart 1 tab Q4HP PRN PO 05/17/25 15:30 Enoxaparin Sodium 40 mg DAILY SC 05/18/25 10:00 05/18/25 09:18 40 MG Ceftriaxone Sodium 50 ml @ 100 mls/hr DAILY@09 IV 05/18/25 09:00 05/18/25 09:11 100 MLS/HR Metronidazole 100 ml @ 100 mls/hr Q8HR IV 05/17/25 22:00 05/18/25 13:38 100 MLS/HR Examination Patient lying in bed, in no acute distress General: Lucid, afebrile, mucosae are moist Cardiovascular: Normal S1 and S2. No murmurs, gallops or rubs Respiratory: Normal ventilation mechanics. Clear lung sounds on auscultation Abdomen: Soft, left sided abdominal tenderness on superficial palpation, rest of abdomen nontender, no organomegaly, normal bowel sounds MSK/skin: Mobilizes 4 limbs. Skin is dry and warm Neurological: Oriented in 3 spheres. No motor no sensitive deficits. Pupils are isocoric and reactive laboratory and microbiology Laboratory Tests 05/18/25 04:51 Test 05/18/25 04:51 Range/Units Serum Glucose 95 74-106 mg/dL Microbiology Date/Time Source Procedure Growth Status 05/17/25 10:50 Voided Urine Urine Culture - Preliminary Resulted Problem List/Assessment/Plan Problem List/Assessment/Plan # Acute intractable abdominal pain due to possible infectious Colitis # Rued out Diverticulitis # Fatty liver disease (RODGERS/MASH) # Internal hemorrhoids # Mild Gastritis # Mild hiatal hernia Completed abdominal and pelvis CT: sigmoid wall thickening and fat stranding not associated with diverticula, favoring colitis, diverticulitis not likely. Currently under empiric IV antibiotics (metronidazole and ceftriaxone) and IV fluids Ordered stool studies, cultures and C. diff Currently on full liquid diet. Will advance as tolerated. Continue home medication: Resmetirom (POM). Dr Manley is her GI specialist Patient completed EGD and colonoscopy less than 3 years ago which evidenced mild gastritis, 0.5cm hiatal hernia and internal hemorrhoids. No other dignificant findings # Hypertension # Type 2 diabetes mellitus (diet-controlled) - Hemoglobin A1C 6.3% # Obesity Per EMR, no home mediation for these chronic conditions. Will monitor. Gave advice on healthy life style habits. # Adnexal cyst Incidental 2.3 cm cyst noted on CT. Recommend nonurgent outpatient pelvic ultrasound for characterization. Goals of care discussed with patient for over 18 minutes: Full code status. Case discussed with Dr Mora, patient and nurses: Currently on Med/Surge status. Under empiric IV antibiotics, IV fluids, advanced diet to full liquid (will advance as tolerated). Ordered stool studies. Plan discussed with: Patient, Other (Nurses) Visit Coding STANDARD RES Billing Provider: RAMILA MORA MD Date of Service if different f: May 18, 2025 Common Visit Codes: [id number] INP/OBS CARE(HIGH) JIM PATINO RESIDENT May 18, 2025 16:57
[2025-05-19 05:00] VITALS: BP 110/60; PULSE 59; RESP 15; TEMP 97.8; O2SAT 95
[2025-05-19 07:06] LABS: Potassium 4.0 mmol/L (3.5-5.1); Sodium 143 mmol/L (136-145)
[2025-05-19 07:07] LABS: Anion Gap 8 (5-15); Calcium 8.8 mg/dL (8.7-10.4); Carbon Dioxide 27 mmol/L (20-31)
[2025-05-19 07:08] LABS: Hematocrit 43.0 % (36.0-46.0); Hemoglobin 14.4 g/dL (12.2-16.2); Mean Corpuscular Hemoglobin 29.5 pg (28.0-32.0); Mean Corpuscular Volume 87.9 fL (80.0-100.0); Nucleated Red Blood Cells % 0.1 %
[2025-05-19 07:12] LABS: BUN/Creatinine Ratio 15.9 (10.0-20.0); Blood Urea Nitrogen 11 mg/dL (9-23)
[2025-05-19 07:13] LABS: Magnesium 2.1 mg/dL (1.6-2.6)
[2025-05-19 07:14] LABS: Chloride 108 mmol/L (98-107); Glucose 107 mg/dL (74-106)
[2025-05-19 08:00] VITALS: RESP 16
[2025-05-19 09:00] VITALS: BP 129/81; PULSE 61; RESP 17; TEMP 98.8; O2SAT 96
--- NOTE | 2025-05-19 10:13 | DVHPNRES ---
Progress Note Date Seen: May 19, 2025 Resident Creating Document: PANCHO PAREKH Medical Necessity Reason Pt with a Central, PICC or Fol: No Objective vital signs Vital Sign Date Time Temp Pulse Resp B/P (MAP) Pulse Ox O2 Delivery O2 Flow Rate FiO2 05/19/25 09:00 98.8 61 17 129/81 (97) 96 98.8 05/18/25 20:00 Room Air* 0 21 Total Intake and Output 05/18/25 05/18/25 05/19/25 15:00 23:00 07:00 Intake Total 50 ml 1620 ml 200 ml Balance 50 ml 1620 ml 200 ml medications Current Medications Medications Dose Ordered Sig/Nimisha Route Start Time Stop Time Status Last Admin Dose Admin Sodium Chloride 1,000 ml @ 60 mls/hr [id number] IV 05/17/25 15:30 05/19/25 00:03 60 MLS/HR Acetaminophen 650 mg Q6HP PRN PO 05/17/25 15:30 Acetaminophen/ Hydrocodone Bitart 1 tab Q4HP PRN PO 05/17/25 15:30 Enoxaparin Sodium 40 mg DAILY SC 05/18/25 10:00 05/19/25 08:23 40 MG Ceftriaxone Sodium 50 ml @ 100 mls/hr DAILY@09 IV 05/18/25 09:00 05/19/25 08:22 100 MLS/HR Metronidazole 100 ml @ 100 mls/hr Q8HR IV 05/17/25 22:00 05/19/25 05:05 100 MLS/HR Patient Own Medication 1 DAILY PO 05/19/25 10:00 laboratory and microbiology Laboratory Tests 05/19/25 06:28 Test 05/19/25 06:28 Range/Units Serum Glucose 107 H 74-106 mg/dL Microbiology Date/Time Source Procedure Growth Status 05/17/25 18:23 Blood Blood Culture - Preliminary NO GROWTH AFTER 24 HOURS OF INCUBATION. Resulted 05/17/25 10:50 Voided Urine Urine Culture - Preliminary Resulted Labs and/or images reviewed: Labs reviewed by me, Image(s) reviewed by me Problem List/Assessment/Plan Plan discussed with: Patient, Other (RN) My Orders My Orders Orders - PANCHO PAREKH Procedure Category Date Status Time Complete Blood Count LAB 05/20/25 Verified 04:00 Basic Metabolic Panel LAB 05/20/25 Verified 04:00 Visit Coding STANDARD RES Billing Provider: RAMILA ALEXANDRA MD Date of Service if different f: May 19, 2025 Common Visit Codes: [id number] INP/OBS CARE(HIGH) IZABELLAPANCHO RESIDENT May 19, 2025 10:13
[2025-05-19 11:57] VITALS: TEMP 37.1
[2025-05-19] MEDS ORDERED: CIPR500T4 PO ×2 (12:59→13:00)
[2025-05-19] MEDS ORDERED: METR-344 PO (13:00)
--- NOTE | 2025-05-19 13:03 | DVHDSRES ---
Discharge Summary Date of Admission Resident Creating Document: PANCHO PAREKH RESIDENT May 17, 2025 at 15:23 Date of Discharge: May 19, 2025 Admitting Diagnosis left-sided abdominal pain Labs/Diagnostic Data: Laboratory Results Test 05/19/25 10:00 05/19/25 06:28 05/18/25 04:51 05/17/25 10:50 White Blood Count 5.1 10^3/uL (4.4-10.8) Red Blood Count 4.89 10^6/uL (4.0-5.20) Hemoglobin 14.4 g/dL (12.2-16.2) Hematocrit 43.0 % (36.0-46.0) Mean Corpuscular Volume 87.9 fL (80.0-100.0) Mean Corpuscular Hemoglobin 29.5 pg (28.0-32.0) Mean Corpuscular Hemoglobin Concent 33.6 g/dL (32.0-36.0) Red Cell Distribution Width 13.4 % (11.8-14.3) Platelet Count 236 10^3/uL (140-450) Mean Platelet Volume 9.2 fL (6.9-10.8) Neutrophils (%) (Auto) 39.9 % (37.0-80.0) Lymphocytes (%) (Auto) 49.2 % (10.0-50.0) Monocytes (%) (Auto) 7.4 % (0.0-12.0) Eosinophils (%) (Auto) 2.8 % (0.0-7.0) Basophils (%) (Auto) 0.7 % (0.0-2.0) Neutrophils # (Auto) 2.0 10 ^3/uL (1.6-8.6) Lymphocytes # (Auto) 2.5 10 ^3/uL (0.4-5.4) Monocytes # (Auto) 0.4 10 ^3/uL (0-1.3) Eosinophils # (Auto) 0.1 10 ^3/uL (0-0.8) Basophils # (Auto) 0 10 ^3/uL (0-0.2) Nucleated Red Blood Cells 0.1 % Sodium Level 143 mmol/L (136-145) Potassium Level 4.0 mmol/L (3.5-5.1) Chloride Level 108 mmol/L (98-107) Carbon Dioxide Level 27 mmol/L (20-31) Anion Gap 8 (5-15) Blood Urea Nitrogen 11 mg/dL (9-23) Creatinine 0.69 mg/dL (0.550-1.02) Glomerular Filtration Rate Calc 97 mL/min (>90) BUN/Creatinine Ratio 15.9 (10.0-20.0) Serum Glucose 107 mg/dL (74-106) Calcium Level 8.8 mg/dL (8.7-10.4) Magnesium Level 2.1 mg/dL (1.6-2.6) Prothrombin Time 10.4 sec (9.3-11.8) Prothrombin Time INR 0.98 (0.9-1.15) Activated Partial Thromboplast Time 26.8 SEC (24.5-34.5) Hemoglobin A1c 6.3 % A1C (<5.7) Phosphorus Level 3.0 mg/dL (2.4-5.1) Total Bilirubin 0.5 mg/dL (0.2-1.0) Aspartate Amino Transferase (AST) 32 U/L (13-40) Alanine Aminotransferase (ALT) 36 U/L (7-40) Alkaline Phosphatase 66 U/L (46-116) Total Protein 6.1 g/dL (5.7-8.2) Albumin 3.7 g/dL (3.2-4.8) Vitamin B12 Level 492 pg/mL (211-911) Vitamin D 25-Hydroxy 35.0 ng/mL (30.0-100) Thyroid Stimulating Hormone (TSH) 1.32 uIU/mL (0.55-4.78) Urine Color Light-yellow (Yellow) Urine Clarity Clear (Clear) Urine pH 5.5 (5.0-9.0) Urine Specific [place] 1.023 (1.001-1.035) Urine Protein Negative (Negative) Urine Ketones Negative (Negative) Urine Blood Negative /uL (Negative) Urine Nitrite Negative (Negative) Urine Bilirubin Negative (Negative) Urine Urobilinogen Normal mg/dL (Negative) Urine Leukocyte Esterase Negative /uL (Negative) Urine RBC 1 /hpf (0 - 4) Urine Microscopic WBC 1 /HPF (0-5) Urine Squamous Epithelial Cells Few /hpf (<5) Urine Bacteria Few /hpf (None Seen) Urine Mucus Few (None Seen) Urine Glucose Normal mg/dL (Normal) Test 05/17/25 10:41 Lactic Acid Level 1.7 mmol/L (0.4-2.0) Direct Bilirubin 0.1 mg/dL (<0.3) Lipase 39 U/L (12-53) Other Laboratory Tests 05/19/25 06:28 Brief Hx & Hospital Course: Yareli Carter is a 64-year-old female who presented to the ED with a chief complaint of non-radiating, oppressive, constant left-sided abdominal pain that began three days prior to admission. She denied nausea, vomiting, constipation, diarrhea, changes in diet, recent antibiotic use, hematochezia, bleeding, recent travel, and sick contacts. Past medical history includes fatty liver disease (VISHAL, followed by Dr. Manley), hypertension, and diet-controlled diabetes. Surgical history includes left elbow benign mass resection in August 2024, EGD in October 2023 showing mild hiatal hernia and mild gastritis, and colonoscopy in July 2022 showing mild internal hemorrhoids. Family history is non- contributory. Social history reveals that she lives in [place] with family and denies tobacco, alcohol, or drug use. Allergies include levofloxacin. Home medication is Resmetirom. Hospital Course: On admission, CT abdomen and pelvis without contrast showed mucosal thickening and fat stranding in the sigmoid colon without associated diverticula, favoring colitis rather than diverticulitis. Incidental finding of a 2.3 cm right adnexal cyst was noted. No evidence of bowel obstruction, pneumoperitoneum, or abscess was seen. The patient was started on empiric IV antibiotics (metronidazole and ceftriaxone) and IV fluids. Stool studies, cultures, and C. difficile testing were ordered. The patient was placed on a full liquid diet with plans to advance as tolerated. She continues home medication Resmetirom. Goals of care were discussed, and the patient is full code. Case was discussed with Dr. Mora and nursing staff. The patient remains on Med/Surg status, clinically stable, and continues to report left-sided abdominal pain. Outpatient pelvic ultrasound was recommended for adnexal cyst characterization. Lifestyle counseling was provided for hypertension, diabetes, and obesity. On evaluation today, she states she is well, pain is manageable. Her vitals have remained stable for discharge home, follow up visit in discharge clinic. All medications and recommendations were thoroughly explained and the patient states he understands and agrees. Detailed discussion held with patient at bedside were all questions were answered and concerns were addressed. Examination Patient lying in bed, in no acute distress General: Lucid, afebrile, mucosae are moist Cardiovascular: Normal S1 and S2. No murmurs, gallops or rubs Respiratory: Normal ventilation mechanics. Clear lung sounds on auscultation Abdomen: Soft, left sided abdominal tenderness on superficial palpation, rest of abdomen nontender, no organomegaly, normal bowel sounds MSK/skin: Mobilizes 4 limbs. Skin is dry and warm Neurological: Oriented in 3 spheres. No motor no sensitive deficits. Pupils are isocoric and reactive Operations or Procedures PATIENT: YARELI CARTER ACCT: [id number] UNIT: [id number] : 1960 LOC: ER ROOM / BED: / AGE / SEX: 64 / F ADM STATUS: REG ER SERVICE [id number] ORDERING PHYSICIAN: DENNISE MURRAY MD PROCEDURE(s): ABPL - CT AB PEL WO CON-NO ORAL OR IV REASON: r/o diverticulitis ORDER NUMBER(s): [id number], ACCESSION NUMBER(s): [id number] EXAM: CT CT AB PEL WO CON-NO ORAL OR IV History: r/o diverticulitis Comparison Study: None TECHNIQUE: Multidetector spiral CT of the abdomen and pelvis was performed from lung bases to pubic symphysis. Imaging was performed without intravenous contrast. Coronal and sagittal multiplanar reformats were obtained from the axial data set by the technologist. Radiation Dose : 1. Abdomen/Pelvis: CTDIvol 12.21 mGy, DLP 698.6 mGy*cm. FINDINGS: Evaluation of vasculature and solid organs is limited due to lack of intravenous contrast use. Lung Bases: Lung bases are clear. Visualized portions of the heart and pericardium are unremarkable. Liver: The liver is normal in size. No focal lesions. Gallbladder and Biliary Tree: The gallbladder is contracted. No intrahepatic or extrahepatic biliary ductal dilatation. Spleen: Unremarkable Pancreas: The pancreas is grossly unremarkable. Adrenal Glands: Unremarkable Kidneys: Kidneys are unremarkable without calculi or hydronephrosis. GI tract: The stomach is grossly normal in appearance. No evidence of small bowel wall thickening or abnormal dilatation to suggest bowel obstruction. Mucosal thickening and fat stranding in the sigmoid colon. There are few scattered colonic diverticula. The appendix is not visualized, however no inflammatory changes in the right lower quadrant to suggest acute appendicitis. Peritoneum/mesentery/retroperitoneum. No evidence of free intraperitoneal air. No ascites. Lymph nodes: No lymphadenopathy. There is fat stranding in the central mesentery with swirling. Abdominal Wall: Unremarkable. Vasculature: The visualized abdominal aorta is normal in size and caliber. Evaluation of abdominal and pelvic vessels is limited due to lack of intravenous contrast. Urinary Bladder: Grossly unremarkable for degree of distention. Pelvic Organs: There is a 2.3 cm right adnexal cystic lesion. Uterus is unremarkable. Musculoskeletal: No aggressive focal bony lesions, acute fractures or dislocation. IMPRESSION: 1. Colonic diverticulosis. There is mucosal thickening in the sigmoid colon with Fat stranding but the fat stranding is seen in a location that is without a diverticulum. This may reflect a colitis rather than acute diverticulitis. No fluid collection or pneumoperitoneum. 2. Fat stranding in the central mesentery with swirling. This is not associated with small bowel obstruction or inflammatory change. 3. Right adnexal cystic lesion measuring 2.3 cm. Condition at Discharge: Stable Final Diagnosis/Problems List # Acute intractable abdominal pain due to possible infectious Colitis # Rued out Diverticulitis # Fatty liver disease (RODGERS/MASH) # Internal hemorrhoids # Mild Gastritis # Mild hiatal hernia # Hypertension # Type 2 diabetes mellitus (diet-controlled) - Hemoglobin A1C 6.3% # Obesity # Adnexal cyst Discharge Disposition: Home Discharge Instruct/Medications Diet: Cardiac 2g Na,low cholest Activity: No Restrictions, As Tolerated Follow Up/Referral: Follow up with PCP within 1 week Medications: See prescriptions Scheduled Ciprofloxacin Hcl (Ciprofloxacin Hcl), 500 MG PO BID Metronidazole (Flagyl), 1 TAB PO TID Miscellaneous Medications Resmetirom (Rezdiffra), PO, (Reported) Discharge Statement: "Patient was advised to return to the ER or call 911 if any headaches, dizziness, shortness of breath, chest pain, abdominal pain, bleeding, fevers, or worsening of medical condition. Patient was counseled about treatment plan, medications, possible side effects, patientverbalized understanding. All questions were answered to the best of my ability. This discharge took greater then 30 minutes in planning, reviewing documentation, counseling the patient, and discussing with other team members." ASSESSMENT ASSESSMENT Assessment # Acute intractable abdominal pain due to possible infectious Colitis # Rued out Diverticulitis # Fatty liver disease (RODGERS/MASH) # Internal hemorrhoids # Mild Gastritis # Mild hiatal hernia # Hypertension # Type 2 diabetes mellitus (diet-controlled) - Hemoglobin A1C 6.3% # Obesity # Adnexal cyst Visit Coding STANDARD RES Billing Provider: RAMILA MORA MD Date of Service if different f: May 19, 2025 Common Visit Codes: 10299-OAK/OBS DISCH DAY >30min PANCHO PAREKH RESIDENT May 19, 2025 13:03
== END 2025-05-19 12:31 | disposition home or self-care (01) | DRG 249 ==
LOC: ER 09:58 → OVERFLOW 15:23 → WEST WING 22:20
PROVIDERS: ADMIT Internal Medicine Geriatric Medicine; ATTEND Internal Medicine Geriatric Medicine
DX: A09 Infectious gastroenteritis and colitis, unspecified (principal); E27.8 Other specified disorders of adrenal gland; E11.9 Type 2 diabetes mellitus without complications; I10 Essential (primary) hypertension; K76.0 Fatty (change of) liver, not elsewhere classified; E66.9 Obesity, unspecified; K44.9 Diaphragmatic hernia without obstruction or gangrene; Z88.1 Allergy status to other antibiotic agents; Z68.31 Body mass index [BMI] 31.0-31.9, adult
CPT/HCPCS: 36415; 74176; 80048; 80053; 80076; 81001; 82270; 82306; 82607; 83036; 83605; 83690; 83735; 84100; 84443; 85025; 85048; 85610; 85730; 87040; 87045; 87086; 87427; 99291; G0378; J2405; J3490